=== PATIENT | male | born 1935 | race Caucasian/White ===

== ENCOUNTER 2020-08-27 10:20 | Outpatient (CLI) | payer MEDICARE | END 2020-08-27 10:21 | disposition home or self-care (01) | LOC: DI 10:20 | PROVIDERS: ATTEND Internal Medicine | DX: I48.21 Permanent atrial fibrillation (principal); I27.20 Pulmonary hypertension, unspecified; I08.0 Rheumatic disorders of both mitral and aortic valves | CPT/HCPCS: 93306 ==

== ENCOUNTER 2020-11-20 13:43 | Outpatient (CLI) | payer MEDICARE ==
[2020-11-20 14:33] VITALS: BP 132/90
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
== END 2020-11-20 13:44 | disposition home or self-care (01) ==
LOC: SC 13:43
PROVIDERS: ATTEND Nurse Practitioner Family
DX: G47.33 Obstructive sleep apnea (adult) (pediatric) (principal); E66.9 Obesity, unspecified; Z68.32 Body mass index [BMI] 32.0-32.9, adult
CPT/HCPCS: 99202; G0463; 99212

== ENCOUNTER 2020-11-23 13:05 | Outpatient (CLI) | payer MEDICARE ==
[2020-11-23] MEDS ORDERED: ALBUTEROL 1 PUFF INH STA (14:41)
== END 2020-11-23 13:06 | disposition home or self-care (01) ==
LOC: RT 13:05
PROVIDERS: ATTEND Internal Medicine
DX: I27.20 Pulmonary hypertension, unspecified (principal)
CPT/HCPCS: 94060; 94729

== ENCOUNTER 2021-01-31 13:36 | Outpatient (CLI) | payer MEDICARE | END 2021-01-31 13:37 | disposition home or self-care (01) | LOC: LAB 13:36 | PROVIDERS: ATTEND Internal Medicine | DX: I48.91 Unspecified atrial fibrillation (principal); Z79.01 Long term (current) use of anticoagulants | CPT/HCPCS: 36416; 85610 ==

== ENCOUNTER 2021-02-07 09:47 | Outpatient (CLI) | payer MEDICARE | END 2021-02-07 09:48 | disposition home or self-care (01) | LOC: LAB 09:47 | PROVIDERS: ATTEND Internal Medicine | DX: I48.91 Unspecified atrial fibrillation (principal); Z79.01 Long term (current) use of anticoagulants | CPT/HCPCS: 36416; 85610 ==

== ENCOUNTER 2021-02-14 09:48 | Outpatient (CLI) | payer MEDICARE | END 2021-02-14 09:49 | disposition home or self-care (01) | LOC: LAB 09:48 | PROVIDERS: ATTEND Internal Medicine | DX: I48.91 Unspecified atrial fibrillation (principal); Z79.01 Long term (current) use of anticoagulants | CPT/HCPCS: 36416; 85610 ==

== ENCOUNTER 2021-02-21 09:39 | Outpatient (CLI) | payer MEDICARE | END 2021-02-21 09:40 | disposition home or self-care (01) | LOC: LAB 09:39 | PROVIDERS: ATTEND Internal Medicine | DX: I48.91 Unspecified atrial fibrillation (principal); Z79.01 Long term (current) use of anticoagulants | CPT/HCPCS: 36416; 85610 ==

== ENCOUNTER 2021-02-28 09:34 | Outpatient (CLI) | payer MEDICARE | END 2021-02-28 09:35 | disposition home or self-care (01) | LOC: LAB 09:34 | PROVIDERS: ATTEND Internal Medicine | DX: I48.91 Unspecified atrial fibrillation (principal); Z79.01 Long term (current) use of anticoagulants | CPT/HCPCS: 36416; 85610 ==

== ENCOUNTER 2021-03-07 09:52 | Outpatient (CLI) | payer MEDICARE | END 2021-03-07 09:53 | disposition home or self-care (01) | LOC: LAB 09:52 | PROVIDERS: ATTEND Internal Medicine | DX: I48.91 Unspecified atrial fibrillation (principal); Z79.01 Long term (current) use of anticoagulants | CPT/HCPCS: 36416; 85610 ==

== ENCOUNTER 2021-03-21 09:22 | Outpatient (CLI) | payer MEDICARE | END 2021-03-21 09:23 | disposition home or self-care (01) | LOC: LAB 09:22 | PROVIDERS: ATTEND Internal Medicine | DX: I48.91 Unspecified atrial fibrillation (principal); Z79.01 Long term (current) use of anticoagulants | CPT/HCPCS: 85610 ==

== ENCOUNTER 2021-03-28 09:49 | Outpatient (CLI) | payer MEDICARE | END 2021-03-28 09:50 | disposition home or self-care (01) | LOC: LAB 09:49 | PROVIDERS: ATTEND Internal Medicine | DX: I48.91 Unspecified atrial fibrillation (principal); Z79.01 Long term (current) use of anticoagulants | CPT/HCPCS: 36416; 85610 ==

== ENCOUNTER 2021-04-11 09:47 | Outpatient (CLI) | payer MEDICARE | END 2021-04-11 09:48 | disposition home or self-care (01) | LOC: LAB 09:47 | PROVIDERS: ATTEND Internal Medicine | DX: I48.91 Unspecified atrial fibrillation (principal); Z79.01 Long term (current) use of anticoagulants | CPT/HCPCS: 36416; 85610 ==

== ENCOUNTER 2021-04-25 09:31 | Outpatient (CLI) | payer MEDICARE | END 2021-04-25 09:32 | disposition home or self-care (01) | LOC: LAB 09:31 | PROVIDERS: ATTEND Internal Medicine | DX: I48.91 Unspecified atrial fibrillation (principal); Z79.01 Long term (current) use of anticoagulants | CPT/HCPCS: 36416; 85610 ==

== ENCOUNTER 2021-05-16 09:33 | Outpatient (CLI) | payer MEDICARE | END 2021-05-16 09:34 | disposition home or self-care (01) | LOC: LAB 09:33 | PROVIDERS: ATTEND Internal Medicine | DX: I48.91 Unspecified atrial fibrillation (principal); Z79.01 Long term (current) use of anticoagulants | CPT/HCPCS: 36416; 85610 ==

== ENCOUNTER 2021-05-23 09:26 | Outpatient (CLI) | payer MEDICARE | END 2021-05-23 09:27 | disposition home or self-care (01) | LOC: LAB 09:26 | PROVIDERS: ATTEND Internal Medicine | DX: I48.91 Unspecified atrial fibrillation (principal); Z79.01 Long term (current) use of anticoagulants | CPT/HCPCS: 36416; 85610 ==

== ENCOUNTER 2021-05-30 09:30 | Outpatient (CLI) | payer MEDICARE | END 2021-05-30 09:31 | disposition home or self-care (01) | LOC: LAB 09:30 | PROVIDERS: ATTEND Internal Medicine | DX: I48.91 Unspecified atrial fibrillation (principal); Z79.01 Long term (current) use of anticoagulants | CPT/HCPCS: 36416; 85610 ==

== ENCOUNTER 2021-06-20 09:44 | Outpatient (CLI) | payer MEDICARE | END 2021-06-20 09:45 | disposition home or self-care (01) | LOC: LAB 09:44 | PROVIDERS: ATTEND Internal Medicine | DX: I48.91 Unspecified atrial fibrillation (principal); Z79.01 Long term (current) use of anticoagulants | CPT/HCPCS: 36416; 85610 ==

== ENCOUNTER 2021-07-18 09:32 | Outpatient (CLI) | payer MEDICARE | END 2021-07-18 09:33 | disposition home or self-care (01) | LOC: LAB 09:32 | PROVIDERS: ATTEND Internal Medicine | DX: I48.91 Unspecified atrial fibrillation (principal); Z79.01 Long term (current) use of anticoagulants | CPT/HCPCS: 36416; 85610 ==

== ENCOUNTER 2021-08-22 09:39 | Outpatient (CLI) | payer MEDICARE | END 2021-08-22 09:40 | disposition home or self-care (01) | LOC: LAB 09:39 | PROVIDERS: ATTEND Internal Medicine | DX: I48.91 Unspecified atrial fibrillation (principal); Z79.01 Long term (current) use of anticoagulants | CPT/HCPCS: 36416; 85610 ==

== ENCOUNTER 2021-09-05 09:23 | Outpatient (CLI) | payer MEDICARE | END 2021-09-05 09:24 | disposition home or self-care (01) | LOC: LAB 09:23 | PROVIDERS: ATTEND Internal Medicine | DX: I48.91 Unspecified atrial fibrillation (principal); Z79.01 Long term (current) use of anticoagulants | CPT/HCPCS: 36416; 85610 ==

== ENCOUNTER 2021-09-19 09:23 | Outpatient (CLI) | payer MEDICARE | END 2021-09-19 09:24 | disposition home or self-care (01) | LOC: LAB 09:23 | PROVIDERS: ATTEND Internal Medicine | DX: I48.91 Unspecified atrial fibrillation (principal); Z79.01 Long term (current) use of anticoagulants | CPT/HCPCS: 36416; 85610 ==

== ENCOUNTER 2021-10-17 09:29 | Outpatient (CLI) | payer MEDICARE | END 2021-10-17 09:30 | disposition home or self-care (01) | LOC: LAB 09:29 | PROVIDERS: ATTEND Internal Medicine | DX: I48.91 Unspecified atrial fibrillation (principal); Z79.01 Long term (current) use of anticoagulants | CPT/HCPCS: 36416; 85610 ==

== ENCOUNTER 2021-11-21 09:23 | Outpatient (CLI) | payer MEDICARE | END 2021-11-21 09:24 | disposition home or self-care (01) | LOC: LAB 09:23 | PROVIDERS: ATTEND Internal Medicine | DX: I48.91 Unspecified atrial fibrillation (principal); Z79.01 Long term (current) use of anticoagulants | CPT/HCPCS: 36416; 85610 ==

== ENCOUNTER 2021-12-19 09:30 | Outpatient (CLI) | payer MEDICARE | END 2021-12-19 09:31 | disposition home or self-care (01) | LOC: LAB 09:30 | PROVIDERS: ATTEND Internal Medicine | DX: I48.91 Unspecified atrial fibrillation (principal); Z79.01 Long term (current) use of anticoagulants | CPT/HCPCS: 36416; 85610 ==

== ENCOUNTER 2022-01-16 08:00 | Outpatient (CLI) | payer MEDICARE | END 2022-01-16 08:01 | disposition home or self-care (01) | LOC: LAB 08:00 | PROVIDERS: ATTEND Internal Medicine | DX: I48.91 Unspecified atrial fibrillation (principal); Z79.01 Long term (current) use of anticoagulants | CPT/HCPCS: 36416; 85610 ==

== ENCOUNTER 2022-01-23 09:41 | Outpatient (CLI) | payer MEDICARE | END 2022-01-23 09:42 | disposition home or self-care (01) | LOC: LAB 09:41 | PROVIDERS: ATTEND Internal Medicine | DX: I48.91 Unspecified atrial fibrillation (principal); Z79.01 Long term (current) use of anticoagulants | CPT/HCPCS: 36416; 85610 ==

== ENCOUNTER 2022-01-30 09:25 | Outpatient (CLI) | payer MEDICARE | END 2022-01-30 09:26 | disposition home or self-care (01) | LOC: LAB 09:25 | PROVIDERS: ATTEND Internal Medicine | DX: I48.91 Unspecified atrial fibrillation (principal); Z79.01 Long term (current) use of anticoagulants | CPT/HCPCS: 36416; 85610 ==

== ENCOUNTER 2022-02-06 09:25 | Outpatient (CLI) | payer MEDICARE | END 2022-02-06 09:26 | disposition home or self-care (01) | LOC: LAB 09:25 | PROVIDERS: ATTEND Internal Medicine | DX: I48.91 Unspecified atrial fibrillation (principal); Z79.01 Long term (current) use of anticoagulants | CPT/HCPCS: 36416; 85610 ==

== ENCOUNTER 2022-02-13 09:34 | Outpatient (CLI) | payer MEDICARE | END 2022-02-13 09:35 | disposition home or self-care (01) | LOC: LAB 09:34 | PROVIDERS: ATTEND Internal Medicine | DX: I48.91 Unspecified atrial fibrillation (principal); Z79.01 Long term (current) use of anticoagulants | CPT/HCPCS: 36416; 85610 ==

== ENCOUNTER 2022-02-27 09:23 | Outpatient (CLI) | payer MEDICARE | END 2022-02-27 09:24 | disposition home or self-care (01) | LOC: LAB 09:23 | PROVIDERS: ATTEND Internal Medicine | DX: I48.91 Unspecified atrial fibrillation (principal); Z79.01 Long term (current) use of anticoagulants | CPT/HCPCS: 36416; 85610 ==

== ENCOUNTER 2022-03-13 08:00 | Outpatient (CLI) | payer MEDICARE | END 2022-03-13 23:59 | disposition home or self-care (01) | LOC: LAB 08:00 | PROVIDERS: ATTEND Internal Medicine | DX: I48.91 Unspecified atrial fibrillation (principal); Z79.01 Long term (current) use of anticoagulants | CPT/HCPCS: 85610 ==

== ENCOUNTER 2022-04-03 09:28 | Outpatient (CLI) | payer MEDICARE | END 2022-04-03 09:29 | disposition home or self-care (01) | LOC: LAB 09:28 | PROVIDERS: ATTEND Internal Medicine | DX: I48.91 Unspecified atrial fibrillation (principal); Z79.01 Long term (current) use of anticoagulants | CPT/HCPCS: 36416; 85610 ==

== ENCOUNTER 2022-04-10 08:00 | Outpatient (CLI) | payer MEDICARE ==
[2022-04-10 16:32] LABS: CALCIUM 9.3 mg/dL (8.5-10.3); CREATININE 1.5 mg/dL (0.6-1.2); POTASSIUM 4.1 mmol/L (3.5-5.0)
[2022-04-10 20:28] LABS: ESTIMATED AVERAGE GLUCOSE 160 mg/dL (70-100); HEMOGLOBIN A1c% 7.2 % (4.27-6.07)
== END 2022-04-10 23:59 | disposition home or self-care (01) ==
LOC: LAB.R 08:00
PROVIDERS: ATTEND Internal Medicine
DX: I48.91 Unspecified atrial fibrillation (principal); E11.9 Type 2 diabetes mellitus without complications
CPT/HCPCS: 80048; 82607; 83036

== ENCOUNTER 2022-05-01 09:15 | Outpatient (CLI) | payer MEDICARE | END 2022-05-01 09:16 | disposition home or self-care (01) | LOC: LAB 09:15 | PROVIDERS: ATTEND Internal Medicine | DX: I48.91 Unspecified atrial fibrillation (principal); Z79.01 Long term (current) use of anticoagulants | CPT/HCPCS: 36416; 85610 ==

== ENCOUNTER 2022-06-12 09:26 | Outpatient (CLI) | payer MEDICARE | END 2022-06-12 09:27 | disposition home or self-care (01) | LOC: LAB 09:26 | PROVIDERS: ATTEND Internal Medicine | DX: I48.91 Unspecified atrial fibrillation (principal); Z79.01 Long term (current) use of anticoagulants | CPT/HCPCS: 36416; 85610 ==

== ENCOUNTER 2022-07-24 09:20 | Outpatient (CLI) | payer MEDICARE | END 2022-07-24 09:21 | disposition home or self-care (01) | LOC: LAB 09:20 | PROVIDERS: ATTEND Internal Medicine | DX: I48.91 Unspecified atrial fibrillation (principal); Z79.01 Long term (current) use of anticoagulants | CPT/HCPCS: 36416; 85610 ==

== ENCOUNTER 2022-08-07 09:21 | Outpatient (CLI) | payer MEDICARE | END 2022-08-07 09:22 | disposition home or self-care (01) | LOC: LAB 09:21 | PROVIDERS: ATTEND Internal Medicine | DX: I48.91 Unspecified atrial fibrillation (principal); Z79.01 Long term (current) use of anticoagulants | CPT/HCPCS: 36416; 85610 ==

== ENCOUNTER 2022-08-26 10:02 | Outpatient (CLI) | payer MEDICARE | END 2022-08-26 10:03 | disposition home or self-care (01) | LOC: LAB 10:02 | PROVIDERS: ATTEND Internal Medicine | DX: I48.91 Unspecified atrial fibrillation (principal); Z79.01 Long term (current) use of anticoagulants | CPT/HCPCS: 36416; 85610 ==

== ENCOUNTER 2022-09-04 09:44 | Outpatient (CLI) | payer MEDICARE | END 2022-09-04 09:45 | disposition home or self-care (01) | LOC: LAB 09:44 | PROVIDERS: ATTEND Internal Medicine | DX: I48.91 Unspecified atrial fibrillation (principal); Z79.01 Long term (current) use of anticoagulants | CPT/HCPCS: 36416; 85610 ==

== ENCOUNTER 2022-09-11 09:39 | Outpatient (CLI) | payer MEDICARE | END 2022-09-11 09:40 | disposition home or self-care (01) | LOC: LAB 09:39 | PROVIDERS: ATTEND Internal Medicine | DX: I48.91 Unspecified atrial fibrillation (principal); Z79.01 Long term (current) use of anticoagulants | CPT/HCPCS: 36416; 85610 ==

== ENCOUNTER 2022-10-02 09:39 | Outpatient (CLI) | payer MEDICARE | END 2022-10-02 09:40 | disposition home or self-care (01) | LOC: LAB 09:39 | PROVIDERS: ATTEND Internal Medicine | DX: I48.91 Unspecified atrial fibrillation (principal); Z79.01 Long term (current) use of anticoagulants | CPT/HCPCS: 36416; 85610 ==

== ENCOUNTER 2022-10-04 21:44 | Outpatient (CLI) | payer MEDICARE | END 2022-10-04 21:45 | disposition EMS.NT | LOC: EMS 21:44 | DX: Z03.89 Encounter for observation for other suspected diseases and conditions ruled out (principal) ==

== ENCOUNTER 2022-10-23 09:25 | Outpatient (CLI) | payer MEDICARE | END 2022-10-23 09:26 | disposition home or self-care (01) | LOC: LAB 09:25 | PROVIDERS: ATTEND Internal Medicine | DX: I48.91 Unspecified atrial fibrillation (principal); Z79.01 Long term (current) use of anticoagulants | CPT/HCPCS: 85610 ==

== ENCOUNTER 2022-11-16 09:19 | Outpatient (CLI) | payer MEDICARE | END 2022-11-16 09:20 | disposition home or self-care (01) | LOC: LAB 09:19 | PROVIDERS: ATTEND Internal Medicine | DX: I48.91 Unspecified atrial fibrillation (principal); Z79.01 Long term (current) use of anticoagulants | CPT/HCPCS: 36416; 85610 ==

== ENCOUNTER 2022-11-27 09:14 | Outpatient (CLI) | payer MEDICARE | END 2022-11-27 09:15 | disposition home or self-care (01) | LOC: LAB 09:14 | PROVIDERS: ATTEND Internal Medicine | DX: I48.91 Unspecified atrial fibrillation (principal); Z79.01 Long term (current) use of anticoagulants | CPT/HCPCS: 36416; 85610 ==

== ENCOUNTER 2022-12-24 14:24 | Outpatient (CLI) | payer MEDICARE | END 2022-12-24 23:59 | disposition EMS.NT | LOC: EMS 14:24 | DX: R53.1 Weakness (principal) ==

== ENCOUNTER 2023-01-15 09:26 | Outpatient (CLI) | payer MEDICARE | END 2023-01-15 09:27 | disposition home or self-care (01) | LOC: LAB 09:26 | PROVIDERS: ATTEND Internal Medicine | DX: I48.91 Unspecified atrial fibrillation (principal); Z79.01 Long term (current) use of anticoagulants | CPT/HCPCS: 36416; 85610 ==

== ENCOUNTER 2023-01-22 09:39 | Outpatient (CLI) | payer MEDICARE | END 2023-01-22 09:40 | disposition home or self-care (01) | LOC: LAB 09:39 | PROVIDERS: ATTEND Internal Medicine | DX: I48.91 Unspecified atrial fibrillation (principal); Z79.01 Long term (current) use of anticoagulants | CPT/HCPCS: 36416; 85610 ==

== ENCOUNTER 2023-01-25 10:06 | Outpatient (CLI) | payer MEDICARE | END 2023-01-25 10:07 | disposition home or self-care (01) | LOC: LAB 10:06 | PROVIDERS: ATTEND Internal Medicine | DX: I48.91 Unspecified atrial fibrillation (principal); Z79.01 Long term (current) use of anticoagulants | CPT/HCPCS: 36416; 85610 ==

== ENCOUNTER 2023-02-01 09:29 | Outpatient (CLI) | payer MEDICARE | END 2023-02-01 09:30 | disposition home or self-care (01) | LOC: LAB 09:29 | PROVIDERS: ATTEND Internal Medicine | DX: I48.91 Unspecified atrial fibrillation (principal); Z79.01 Long term (current) use of anticoagulants | CPT/HCPCS: 36416; 85610 ==

== ENCOUNTER 2023-02-02 10:26 | Outpatient (CLI) | payer MEDICARE ==
--- NOTE | 2023-02-02 11:08 | CT Report ---
PROCEDURE: HEAD WO INDICATIONS: ALTERED MENATL STATUS TECHNIQUE: Noncontrast 4.5 mm thick angled axial sections acquired from the foramen magnum to the vertex. For r adiation dose reduction, the following was used: automated exposure control, adjustment of mA and/or kV according to patient size. COMPARISON: None. FINDINGS: Image quality: Excellent. CSF spaces: Basal cisterns are patent. No extra-axial fluid collections. Ventricles are normal in size and shape. Brain: No midline shift. No intracranial masses or hemorrhage. Bautista-white matter interface is norm al. Vascular calcifications. Periventricular white matter disease is commonly seen with chronic micr oangiopathy. Volume loss is present. These findings are within normal limits for age. Remote infarct in the right basal ganglia. Skull and face: Calvarium and visualized facial bones are intact, without suspicious lesions. Sinuses: Visualized sinuses and mastoids are clear. IMPRESSION: No acute intracranial pathology Reviewed by: Juan Carlos Dexter on 02/02/2023 11:06 AM PDT Approved by: Juan Carlos Dexter on 02/02/2023 11:06 AM PDT Station ID: [id number]
== END 2023-02-02 10:27 | disposition home or self-care (01) ==
LOC: DI 10:26
PROVIDERS: ATTEND Internal Medicine
DX: R41.82 Altered mental status, unspecified (principal)

== ENCOUNTER 2023-02-08 09:27 | Outpatient (CLI) | payer MEDICARE | END 2023-02-08 09:28 | disposition home or self-care (01) | LOC: LAB 09:27 | PROVIDERS: ATTEND Internal Medicine | DX: I48.91 Unspecified atrial fibrillation (principal); Z79.01 Long term (current) use of anticoagulants | CPT/HCPCS: 36416; 85610 ==

== ENCOUNTER 2023-02-18 09:54 | Outpatient (CLI) | payer MEDICARE | END 2023-02-18 09:55 | disposition home or self-care (01) | LOC: LAB 09:54 | PROVIDERS: ATTEND Internal Medicine | DX: I48.91 Unspecified atrial fibrillation (principal); Z79.01 Long term (current) use of anticoagulants | CPT/HCPCS: 36416; 85610 ==

== ENCOUNTER 2023-03-04 14:23 | Outpatient (CLI) | payer MEDICARE | END 2023-03-04 14:24 | disposition home or self-care (01) | LOC: LAB 14:23 | PROVIDERS: ATTEND Internal Medicine | DX: I48.91 Unspecified atrial fibrillation (principal); Z79.01 Long term (current) use of anticoagulants | CPT/HCPCS: 36416; 85610 ==

== ENCOUNTER 2023-03-11 15:22 | Outpatient (CLI) | payer MEDICARE | END 2023-03-11 15:23 | disposition home or self-care (01) | LOC: DI 15:22 | PROVIDERS: ATTEND Internal Medicine | DX: I48.91 Unspecified atrial fibrillation (principal); Z79.01 Long term (current) use of anticoagulants | CPT/HCPCS: 36416; 85610 ==

== ENCOUNTER 2023-03-25 15:10 | Outpatient (CLI) | payer MEDICARE | END 2023-03-25 15:11 | disposition home or self-care (01) | LOC: LAB 15:10 | PROVIDERS: ATTEND Internal Medicine | DX: I48.91 Unspecified atrial fibrillation (principal); Z79.01 Long term (current) use of anticoagulants | CPT/HCPCS: 36416; 85610 ==

== ENCOUNTER 2023-04-05 11:26 | Outpatient (CLI) | payer MEDICARE | END 2023-04-05 11:27 | disposition home or self-care (01) | LOC: LAB 11:26 | PROVIDERS: ATTEND Internal Medicine | DX: I48.91 Unspecified atrial fibrillation (principal); Z79.01 Long term (current) use of anticoagulants | CPT/HCPCS: 36416; 85610 ==

== ENCOUNTER 2023-04-13 13:01 | Outpatient (CLI) | payer MEDICARE | END 2023-04-13 13:02 | disposition home or self-care (01) | LOC: LAB 13:01 | PROVIDERS: ATTEND Internal Medicine | DX: I48.91 Unspecified atrial fibrillation (principal); Z79.01 Long term (current) use of anticoagulants | CPT/HCPCS: 36416; 85610 ==

== ENCOUNTER 2023-04-19 11:09 | Outpatient (CLI) | payer MEDICARE | END 2023-04-19 11:10 | disposition home or self-care (01) | LOC: LAB 11:09 | PROVIDERS: ATTEND Internal Medicine | DX: I48.91 Unspecified atrial fibrillation (principal); Z79.01 Long term (current) use of anticoagulants | CPT/HCPCS: 36416; 85610 ==

== ENCOUNTER 2023-05-03 13:36 | Outpatient (CLI) | payer MEDICARE | END 2023-05-03 13:37 | disposition home or self-care (01) | LOC: LAB 13:36 | PROVIDERS: ATTEND Internal Medicine | DX: I48.91 Unspecified atrial fibrillation (principal); Z79.01 Long term (current) use of anticoagulants | CPT/HCPCS: 36416; 85610 ==

== ENCOUNTER 2023-06-02 13:32 | Outpatient (CLI) | payer MEDICARE | END 2023-06-02 13:33 | disposition home or self-care (01) | LOC: LAB 13:32 | PROVIDERS: ATTEND Internal Medicine | DX: I48.91 Unspecified atrial fibrillation (principal); Z79.01 Long term (current) use of anticoagulants | CPT/HCPCS: 36416; 85610 ==

== ENCOUNTER 2023-06-11 12:46 | Outpatient (CLI) | payer MEDICARE | END 2023-06-11 12:47 | disposition home or self-care (01) | LOC: LAB 12:46 | PROVIDERS: ATTEND Internal Medicine | DX: I48.91 Unspecified atrial fibrillation (principal); Z79.01 Long term (current) use of anticoagulants | CPT/HCPCS: 36416; 85610 ==

== ENCOUNTER 2023-07-05 12:24 | Outpatient (CLI) | payer MEDICARE | END 2023-07-05 12:25 | disposition home or self-care (01) | LOC: LAB 12:24 | PROVIDERS: ATTEND Internal Medicine | DX: I48.91 Unspecified atrial fibrillation (principal); Z79.01 Long term (current) use of anticoagulants | CPT/HCPCS: 36416; 85610 ==

== ENCOUNTER 2023-07-20 13:55 | Outpatient (CLI) | payer MEDICARE | END 2023-07-20 13:56 | disposition home or self-care (01) | LOC: LAB 13:55 | PROVIDERS: ATTEND Internal Medicine | DX: I48.91 Unspecified atrial fibrillation (principal); Z79.01 Long term (current) use of anticoagulants | CPT/HCPCS: 36416; 85610 ==

== ENCOUNTER 2023-08-17 12:43 | Outpatient (CLI) | payer MEDICARE | END 2023-08-17 12:44 | disposition home or self-care (01) | LOC: LAB 12:43 | PROVIDERS: ATTEND Internal Medicine | DX: I48.91 Unspecified atrial fibrillation (principal); Z79.01 Long term (current) use of anticoagulants | CPT/HCPCS: 36416; 85610 ==

== ENCOUNTER 2023-09-22 12:54 | Outpatient (CLI) | payer MEDICARE | END 2023-09-22 12:55 | disposition home or self-care (01) | LOC: LAB 12:54 | PROVIDERS: ATTEND Internal Medicine | DX: I48.91 Unspecified atrial fibrillation (principal); Z79.01 Long term (current) use of anticoagulants | CPT/HCPCS: 36416; 85610 ==

== ENCOUNTER 2023-10-26 13:34 | Outpatient (CLI) | payer MEDICARE | END 2023-10-26 13:35 | disposition home or self-care (01) | LOC: LAB 13:34 | PROVIDERS: ATTEND Internal Medicine | DX: I48.91 Unspecified atrial fibrillation (principal); Z79.01 Long term (current) use of anticoagulants | CPT/HCPCS: 36416; 85610 ==

== ENCOUNTER 2023-11-26 13:51 | Outpatient (CLI) | payer MEDICARE | END 2023-11-26 13:52 | disposition home or self-care (01) | LOC: LAB 13:51 | PROVIDERS: ATTEND Internal Medicine | DX: I48.91 Unspecified atrial fibrillation (principal); Z79.01 Long term (current) use of anticoagulants | CPT/HCPCS: 36416; 85610 ==

== ENCOUNTER 2023-12-20 13:21 | Outpatient (CLI) | payer MEDICARE | END 2023-12-20 13:22 | disposition home or self-care (01) | LOC: LAB 13:21 | PROVIDERS: ATTEND Internal Medicine | DX: I48.91 Unspecified atrial fibrillation (principal); Z79.01 Long term (current) use of anticoagulants | CPT/HCPCS: 36416; 85610 ==

== ENCOUNTER 2024-01-19 13:53 | Outpatient (CLI) | payer MEDICARE | END 2024-01-19 13:54 | disposition home or self-care (01) | LOC: LAB 13:53 | PROVIDERS: ATTEND Internal Medicine | DX: I48.91 Unspecified atrial fibrillation (principal); Z79.01 Long term (current) use of anticoagulants | CPT/HCPCS: 36416; 85610 ==

== ENCOUNTER 2024-02-18 13:33 | Outpatient (CLI) | payer MEDICARE | END 2024-02-18 13:34 | disposition home or self-care (01) | LOC: LAB 13:33 | PROVIDERS: ATTEND Internal Medicine | DX: I48.91 Unspecified atrial fibrillation (principal); Z79.01 Long term (current) use of anticoagulants | CPT/HCPCS: 36416; 85610 ==

== ENCOUNTER 2024-03-17 12:23 | Outpatient (CLI) | payer MEDICARE | END 2024-03-17 12:24 | disposition home or self-care (01) | LOC: LAB 12:23 | PROVIDERS: ATTEND Internal Medicine | DX: I48.91 Unspecified atrial fibrillation (principal); Z79.01 Long term (current) use of anticoagulants | CPT/HCPCS: 36416; 85610 ==

== ENCOUNTER 2024-04-25 13:11 | Outpatient (CLI) | payer MEDICARE | END 2024-04-25 13:12 | disposition home or self-care (01) | LOC: LAB 13:11 | PROVIDERS: ATTEND Internal Medicine | DX: I48.91 Unspecified atrial fibrillation (principal); Z79.01 Long term (current) use of anticoagulants | CPT/HCPCS: 36416; 85610 ==

== ENCOUNTER 2024-04-28 14:17 | Outpatient (CLI) | payer MEDICARE | END 2024-04-28 14:18 | disposition home or self-care (01) | LOC: LAB 14:17 | PROVIDERS: ATTEND Internal Medicine | DX: I48.91 Unspecified atrial fibrillation (principal); Z79.01 Long term (current) use of anticoagulants | CPT/HCPCS: 36416; 85610 ==

== ENCOUNTER 2024-05-01 13:03 | Outpatient (CLI) | payer MEDICARE | END 2024-05-01 13:04 | disposition home or self-care (01) | LOC: LAB 13:03 | PROVIDERS: ATTEND Internal Medicine | DX: I48.91 Unspecified atrial fibrillation (principal); Z79.01 Long term (current) use of anticoagulants | CPT/HCPCS: 36416; 85610 ==

== ENCOUNTER 2024-05-04 13:07 | Outpatient (CLI) | payer MEDICARE | END 2024-05-04 13:08 | disposition home or self-care (01) | LOC: LAB 13:07 | PROVIDERS: ATTEND Internal Medicine | DX: I48.91 Unspecified atrial fibrillation (principal); Z79.01 Long term (current) use of anticoagulants | CPT/HCPCS: 36416; 85610 ==

== ENCOUNTER 2024-05-09 14:18 | Outpatient (CLI) | payer MEDICARE | END 2024-05-09 14:19 | disposition home or self-care (01) | LOC: LAB 14:18 | PROVIDERS: ATTEND Internal Medicine | DX: I48.91 Unspecified atrial fibrillation (principal); Z79.01 Long term (current) use of anticoagulants | CPT/HCPCS: 36416; 85610 ==

== ENCOUNTER 2024-05-16 12:08 | Outpatient (CLI) | payer MEDICARE | END 2024-05-16 12:09 | disposition home or self-care (01) | LOC: LAB 12:08 | PROVIDERS: ATTEND Internal Medicine | DX: I48.91 Unspecified atrial fibrillation (principal); Z79.01 Long term (current) use of anticoagulants | CPT/HCPCS: 36416; 85610 ==

== ENCOUNTER 2024-05-29 14:04 | Outpatient (CLI) | payer MEDICARE | END 2024-05-29 14:05 | disposition home or self-care (01) | LOC: LAB 14:04 | PROVIDERS: ATTEND Internal Medicine | DX: I48.91 Unspecified atrial fibrillation (principal); Z79.01 Long term (current) use of anticoagulants | CPT/HCPCS: 36416; 85610 ==

== ENCOUNTER 2024-11-25 18:17 | Observation (INO) ==
--- NOTE | 2024-11-25 18:52 | ED Physician Documentation ---
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 Patient is brought in via EMS for concerns of recent altered mental status, hypotension, weakness. Most of the history is gathered from , she reports that yesterday patient had a bilateral lower extremity wound debridement they told her to make sure that they are medicating him every 4 hours [id number] with oxycodone despite what ever his pain level was. Today she reports that patient has been having episodes of hallucinations very weak very dizzy to the point where he was unable to move or walk and had a hard time communicating to the . Patient says that he is feeling very weak right now as well as dizzy laying at rest. He was told to hold his Pradaxa 2 days leading up to surgery but that he could start taking it again today last dose of Pradaxa was around 2:00 this afternoon and has not had any additional Pradaxa since then. Meds/Allgy Home Medications Ambulatory Orders Medication Instructions Recorded Confirmed dabigatran etexilate 75 mg capsule 75 mg PO BID 08/20/24 11/24/24 (Pradaxa) dorzolamide 22.3 mg-timolol 6.8 1 drp ophthalmic (eye) BID 08/20/24 11/24/24 mg/mL eye drops furosemide 20 mg tablet 20 mg PO DAILY 08/20/24 11/24/24 latanoprost 0.005 % eye drops 1 drp ophthalmic (eye) DAILY 08/20/24 11/24/24 metoprolol tartrate 25 mg tablet 25 mg PO BID 08/20/24 11/24/24 calcium carbonate (Tums) 200 mg PO BID 09/07/24 11/24/24 vit C 250 mg-vit E 90 mg-zinc 40 1 tab PO BID 09/07/24 11/24/24 mg-copper 1 di-djllbr-kzotho capsule (PreserVision AREDS-2) oxycodone 5 mg tablet 5 mg PO Q4H PRN Pain #30 tabs 11/24/24 Allergies Allergies Allergy/AdvReac Type Severity Reaction Status Date / Time diclofenac AdvReac Severe Hives Verified 11/25/24 18:29 PFSH Active Problems All Active Problems (Updated 11/25/24 @ 21:30 by HELGA Guardado) Post-operative complication (Acute) Altered mental status (Acute) Accidental overdose (Acute) Skin tear of right lower leg without complication (Acute) Skin tear of left lower leg without complication (Acute) SAVANAH (acute kidney injury) (Acute) Dehydration (Acute) Skin tear (Acute) Arterial insufficiency of lower extremity (Acute) Localized edema (Acute) Non-pressure chronic ulcer of unspecified part of left lower leg with fat layer exposed (Acute) Ulcer of left lower leg (Acute) Medical History Medical History (Updated 11/25/24 @ 21:30 by HELGA Guardado) Chronic kidney disease (CKD) Hx of prostatic malignancy Diabetes mellitus A-fib HTN (hypertension) Surgical History Surgical History (Updated 11/17/24 @ 11:21 by Jyoti Duque, RN) Hx of prostatectomy Social History Social History (Updated 11/17/24 @ 11:22 by Jyoti Duque, RN) Smoking Status: Never smoker Second hand tobacco smoke exposure: No Do you dip or chew tobacco?: No Do you vape?: No Patient requests smoking cessation consult: No Initiate information on smoking cessation: No Living arrangement: At home Marital Status: Relationship: Home Mobility Equipment: Walker Do you feel safe in your home environment?: Yes Suffered physical, verbal, emotional, or financial abuse?: No History of Abuse: No ETOH Use: Liquor Frequency: Weekly Number of Amount/day: 1 ETOH Use Details: 1 drink 3-4 times per week Substance Use: denies use and cannabis (any form) POLST Patient has POLST: No Exam Constitutional abnormal general appearance (chronically ill), (appears older than stated age) and (frail appearing), no apparent distress, average body habitus, limitations noted (altered mental status) and level of alertness abnormal (lethargic) HENMT normocephalic and head/scalp atraumatic Eyes PERRL and no nystagmus Neck/C-Spine visual inspection normal Chest inspection of chest normal and palpation of chest normal Respiratory breath sounds equal bilaterally Cardiovascular normal heart rate noted Gastrointestinal abdomen normal to inspection Extremities BLE dressing, LLE weeping blood, RLE dressing dry and intact Neurology speech normal Psychiatry mental status abnormal (lethargic), oriented x3 and cooperative Skin LLE: Large roughly [id number] wound from surgical Debridement to the medial aspect of his left calf. No purulent drainage no erythema no signs or symptoms of infection. Results Vitals Vitals: Vital Signs - 24 hr 11/25/24 18:26 11/25/24 19:00 11/25/24 21:00 Temperature 36.6 C Temperature Source Temporal Artery Scan Pulse Rate 86 92 88 Respiratory Rate 19 20 16 Blood Pressure 111/67 123/82 105/70 O2 Saturation 98 98 97 O2 Source Room air Room air Room air Pain Intensity 8 1 Oxygen O2 Source Room air Labs Labs: Laboratory Tests 11/25/24 11/25/24 18:44 19:48 WBC 11.4 H RBC 2.99 L Hgb 9.8 L Hct 31.5 L MCV 105.4 H MCH 32.8 H MCHC 31.1 L RDW 15.5 H Plt Count 211 MPV 9.4 Neut # (Auto) 9.5 H Lymph # (Auto) 0.9 L [place] # (Auto) 0.9 Eos # (Auto) 0.0 Baso # (Auto) 0.0 Absolute Nucleated RBC 0.00 Nucleated RBC % 0.0 PT 14.4 H INR 1.3 H Sodium 134 L Potassium 4.1 Chloride 101 Carbon Dioxide 25 Anion Gap 8.0 BUN 29 H Creatinine 2.2 H Estimated GFR (MDRD) 28 L Glucose 166 H Calcium 8.9 Acetaminophen 0.6 Blood Type O POSITIVE Blood Type Recheck O POSITIVE Antibody Screen NEGATIVE PD Medical Decision Making ED course ED course: 89-year-old male who is quite complex comes to the ER for altered mental status and hypotension. I spoke with on-call surgeon as well as patient's surgeon Dr. King who did the bilateral lower extremity wound debridement yesterday. She advised to go ahead and change the left lower extremity dressing since it is quite saturated. Dressing was removed by myself and per recommendations of Dr. King bacitracin applied over the deep wound with nonadhesive dressing, 4 x 4's and ABD with pressure dressing of a thick Jacob wrap to left lower extremity. There is no obvious signs symptoms of infection no purulent drainage oozing/bleeding appears to have subsided. Patient was given a liter of IV fluids to help with the hypotension reports he has had minimal intake today due to the altered mental status, hallucinations. Patient says that he is absolutely confident he will not be able to ambulate out of bed right now still feeling very lethargic and weak. I spoke with on-call hospitalist Elli Black and she has agreed to admit the patient for altered mental status and accidental opioid overdose. Labs reveal mild leukocytosis, 11.4, hemoglobin 9.8, hematocrit 31.5 anemic this likely from procedure. PT 14.4, INR 1.3 no electrolyte abnormalities BUN slightly elevated at 29, creatinine 2.2, GFR 28 most likely due to chronic kidney disease plus some dehydration. Tylenol level of 0.6. Patient and are very agreeable to stay for hospitalization overnight until we can help him get metabolized and stronger his feet. Dr. King aware that patient will be admitted Discharge Plan Discharge Patient Disposition: ED Place in Observation Condition: Fair Clinical Impression: Accidental overdose, Altered mental status, Post-operative complication Prescriptions: No Action metoprolol tartrate 25 mg tablet 25 mg PO BID furosemide 20 mg tablet 20 mg PO DAILY latanoprost 0.005 % drops 1 drp ophthalmic (eye) DAILY dorzolamide-timolol 22.3-6.8 mg/mL drops 1 drp ophthalmic (eye) BID dabigatran etexilate [Pradaxa] 75 mg capsule 75 mg PO BID oxycodone 5 mg tablet 5 mg PO Q4H PRN (Reason: Pain) Qty: 30 0RF Rx Instructions: Take with food. Do Not drive while taking medication. calcium carbonate [Tums] 200 mg calcium (500 mg) tablet,chewable 200 mg PO BID PreserVision AREDS-2 250-90-40-1 mg capsule 1 tab PO BID Print Language: Cambodian Stand Alone Forms: PCP List
[2024-11-25 18:53] LABS: BASOPHILS % (AUTO) 0.1 %; HCT - HEMATOCRIT 31.5 % (42.0-52.0); HGB - HEMOGLOBIN 9.8 g/dL (14.0-18.0); LYMPHOCYTES # (AUTO) 0.9 10^3/uL (1.5-3.5); LYMPHOCYTES % (AUTO) 7.9 %; MEAN CORPUSCULAR HEMOGLOBIN 32.8 pg (27.0-31.0); MEAN CORPUSCULAR HGB CONC 31.1 g/dL (32.0-36.0); MEAN CORPUSCULAR VOLUME 105.4 fL (80.0-94.0); MEAN PLATELET VOLUME 9.4 fL (7.4-11.4); MONOCYTES # (AUTO) 0.9 10^3/uL (0.0-1.0); MONOCYTES % (AUTO) 7.7 %; NEUTROPHILS # (AUTO) 9.5 10^3/uL (1.5-6.6); NEUTROPHILS % (AUTO) 83.8 %; PLT - PLATELET COUNT 211 10^3/uL (130-450); RED BLOOD COUNT 2.99 10^6/uL (4.70-6.10); RED CELL DISTRIBUTION WIDTH 15.5 % (12.0-15.0); WHITE BLOOD COUNT 11.4 x10^3/uL (4.8-10.8)
[2024-11-25 19:00] LABS: INR 1.3 (0.8-1.2); PT - PROTHROMBIN TIME 14.4 secs (9.9-12.6)
[2024-11-25 19:08] LABS: CALCIUM 8.9 mg/dL (8.5-10.3); CREATININE 2.2 mg/dL (0.6-1.3); POTASSIUM 4.1 mmol/L (3.5-4.5)
[2024-11-25] MEDS: BACITRACIN ZINC OINT 1 PACKET TOP STA (20:30)
--- NOTE | 2024-11-25 21:23 | HISTORY & PHYSICAL EXAMINATION ---
Chief Complaint Chief Complaint Chief Complaint: Altered mental status History of Present Illness History Obtained From Records Reviewed: surgery notes History obtained from: Patient and spouse History of Present Illness HPI Comment/Other: 89-year-old male who presents to the emergency department for altered mental status. He had debridement of his bilateral lower extremity wounds on 11/24. 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 He has been seen in wound care for some number of weeks. In any event he was discharged to home about 36 hours ago and his is instructed to give him 1000 mg of Tylenol every 4 hours and oxycodone 5 mg every 4 hours whether he needed or not. Thusly she has been giving him either Tylenol or oxycodone every 2 hours. His last dose of oxycodone was about 7 hours ago. About 2 hours after his most recent dose of oxycodone she decided he needed to get up and go to the bathroom. He had trouble getting down the hallway and ended up sitting in a chair way in the hallway for about an hour while he decided what to do. She was unable to get him up and therefore they called the paramedics he was brought here for altered mental status. Since he has been in the emergency department it has been about 7 hours since his last dose of oxycodone. His mental status is clearing. His pain level is relatively well- controlled. His last dose of Tylenol was quite early this morning because his decided that maybe his pain was not that bad and he did not need it. His PCP was previously Dr. Epps who has retired. He has been in the process of getting established with Dr. Rivas's office but does not have a currently established relationship. He is seen weekly in the wound care center on Wednesdays and general surgery, Dr. King debrided his lower extremities yesterday. He states that he previously had a POLST that was DNR but he is thought about it recently and he would like to be full code. His Rosalia would be his surrogate decision maker. He has a daughter who lives in [place] and a son who lives in [place]. Meds/Allgy Home Medications Ambulatory Orders Medication Instructions Recorded Confirmed dabigatran etexilate 75 mg capsule 75 mg PO BID 08/20/24 11/24/24 (Pradaxa) dorzolamide 22.3 mg-timolol 6.8 1 drp ophthalmic (eye) BID 08/20/24 11/24/24 mg/mL eye drops furosemide 20 mg tablet 20 mg PO DAILY 08/20/24 11/24/24 latanoprost 0.005 % eye drops 1 drp ophthalmic (eye) DAILY 08/20/24 11/24/24 metoprolol tartrate 25 mg tablet 25 mg PO BID 08/20/24 11/24/24 calcium carbonate (Tums) 200 mg PO BID 09/07/24 11/24/24 vit C 250 mg-vit E 90 mg-zinc 40 1 tab PO BID 09/07/24 11/24/24 mg-copper 1 [id number] capsule (PreserVision AREDS-2) oxycodone 5 mg tablet 5 mg PO Q4H PRN Pain #30 tabs 11/24/24 Allergies Allergies Allergy/AdvReac Type Severity Reaction Status Date / Time diclofenac AdvReac Severe Hives Verified 11/25/24 18:29 PFSH Active Problems All Active Problems (Updated 11/25/24 @ 21:30 by HELGA Guardado) Post-operative complication (Acute) Altered mental status (Acute) Accidental overdose (Acute) Skin tear of right lower leg without complication (Acute) Skin tear of left lower leg without complication (Acute) SAVANAH (acute kidney injury) (Acute) Dehydration (Acute) Skin tear (Acute) Arterial insufficiency of lower extremity (Acute) Localized edema (Acute) Non-pressure chronic ulcer of unspecified part of left lower leg with fat layer exposed (Acute) Ulcer of left lower leg (Acute) Medical History Medical History (Updated 11/25/24 @ 21:30 by HELGA Guardado) Chronic kidney disease (CKD) Hx of prostatic malignancy Diabetes mellitus A-fib HTN (hypertension) Surgical History Surgical History (Updated 11/17/24 @ 11:21 by Jyoti Duque RN) Hx of prostatectomy Social History Social History (Updated 11/17/24 @ 11:22 by Jyoti Duque, RN) Smoking Status: Never smoker Second hand tobacco smoke exposure: No Do you dip or chew tobacco?: No Do you vape?: No Patient requests smoking cessation consult: No Initiate information on smoking cessation: No Living arrangement: At home Marital Status: Relationship: Home Mobility Equipment: Walker Do you feel safe in your home environment?: Yes Suffered physical, verbal, emotional, or financial abuse?: No History of Abuse: No ETOH Use: Liquor Frequency: Weekly Number of Amount/day: 1 ETOH Use Details: 1 drink 3-4 times per week Substance Use: denies use and cannabis (any form) POLST Patient has POLST: No POLST Status: Full Code Review of Systems Status of ROS: 10 or more systems reviewed and unremarkable except as noted in history and below Prior Level of Functionality: Ambulates on a limited basis. Has home health 2 times a week as well as a retail sales advisor who helps with bathing Exam Constitutional normal general appearance and no apparent distress HENMT normocephalic and head/scalp atraumatic Eyes conjunctivae normal and no scleral icterus Neck/C-Spine visual inspection normal Lymph no lymphadenopathy noted Chest palpation of chest normal Respiratory breath sounds equal bilaterally and clear to auscultation bilaterally Cardiovascular irregularly irregular, a fib with rate 90 on monitor. weakly palpable DP on the right, on the left DP pulse is not palpable Gastrointestinal abdomen normal to inspection and abdomen soft to palpation Extremities wounds present, are dressed at BLE with serosanguinous drainage. changed recently by ED provider. Neurology trademark affixer II-XII intact, no movement abnormality noted, no focal motor deficit noted, speech normal and GCS 15 Psychiatry mental status grossly normal, oriented x3, thought process normal, cooperative and affect normal Skin skin color normal Conclusion/Plan Problem List (1) Altered mental status: Plan: Presents with altered mental status having taken oxycodone [id number] for a little over 24 hours. Unable to ambulate at home. It is currently been about 7 hours since his last dose of oxycodone and he is starting to clear. He is oriented x 3. I also have concerns about his ingestion of Tylenol. His is giving him 1000 mg of Tylenol every 4 hours. Likely she stopped doing this after a little less than 24 hours. His Tylenol level is within normal limits. I will check CMP in the AM. He was hypotensive per the medics at 80s over 40s. He has been normotensive in the emergency department. (2) Arterial insufficiency of lower extremity: Plan: Patient with chronic wounds. He had ABIs performed in this facility on October 18, 2024. On the right side he has an SHANTANU of 1.16. This is probably artificially elevated due to vessel calcifications, however the signal in his posterior tibial artery was biphasic and was biphasic in his dorsalis pedis artery. On the left side also had an elevated SHANTANU of greater than 1 with biphasic signals at the posterior tibial artery and biphasic at the dorsalis pedis artery. He does have diminished peak arterial velocities in the DPs and PTs. He has not had evaluation by vascular surgeon nor has he had further diagnostic studies. At this time he does not appear acutely infected or acutely ischemic and therefore I believe he does not warrant transfer to a center with a vascular surgeon. Briefly discussed with Dr. King. No active issues from the surgical perspective at this time. s and consultation with other providers.. Monitoring the patient's signs symptoms, evaluation of medication effectiveness and patient's response to treatment. (3) Skin tear of left lower leg without complication: Plan: Left lower extremity wound pictures evaluated. The wounds look clean. There is serosanguineous drainage on the dressings. Dressings were just changed by the emergency department staff. Qualifiers: Encounter type: subsequent encounter Qualified Code(s): S81.812D - Laceration without foreign body, left lower leg, subsequent encounter (4) Skin tear of right lower leg without complication: Plan: Same as above. Wound care photos evaluated. There is serosanguineous drainage. Qualifiers: Encounter type: subsequent encounter Qualified Code(s): S81.811D - Laceration without foreign body, right lower leg, subsequent encounter (5) Chronic kidney disease (CKD): Plan: No foul smell no evidence of infection. Creatinine hovering around 2 this month. Previous readings are from 2021. (6) A-fib: Plan: Atrial fibrillation on Pradaxa. I am holding this due to these wounds and the aserosanguineous drainage. He is also on metoprolol which I have resumed. (7) HTN (hypertension): Plan: Was hypotensive at home and normotensive here in the emergency department. I will continue his metoprolol for rate control his heart rate has been well less than 100 in the emergency department. He has not been bradycardic. Plan I have discussed this patient with the emergency department provider Jessa Chinchilla. Decision was made to admit the patient due to his advanced age and inability to ambulate along with accidental overdose of oxycodone. I will admit him to observation status. I have spent 65 minutes in the care of this patient today. This includes time [id number], review and ordering of diagnostic imaging and laboratory studie Lab Results Lab results reviewed: Yes 11/25/24 18:44 11/25/24 18:44 Diagnostic Imaging Results Diagnostic Imaging Results Comments: reviewed vascular studies from 10/18. results discussed above. Core Measures Anticipated LOS I expect patient to be DC'd or transferred within 96 hours.: Yes Issues Hospital Issues and Management Plan: accidental oxycodone overdose. Will monitor mental status. Likely home tomorrow, OBS status. DVT/VTE - Prophylaxis VTE/DVT Device ordered at admit?: No Not Ordered - Medical Reason: Contraindicated (wounds) VTE/DVT Prophylaxis med ordered at admit?: Yes
[2024-11-25] MEDS ORDERED: SODIUM CHLORIDE FLUSH 0.9% 10 ML SYRINGE IVP PRN (21:42)
[2024-11-25] MEDS ORDERED: HYDROmorphone 0.5 MG/0.5 ML SYRINGE IVP PRN (21:42)
[2024-11-25] MEDS ORDERED: ONDANSETRON ODT 4 MG TABLET TL PRN (21:42)
[2024-11-25] MEDS: METOPROLOL TARTRATE 25 MG TABLET PO SCH (22:53)
[2024-11-25] MEDS: SODIUM CHLORIDE FLUSH 0.9% 10 ML SYRINGE IVP SCH (23:56)
[2024-11-26 05:39] LABS: BASOPHILS % (AUTO) 0.2 %; EOSINOPHILS % (AUTO) 0.2 %; HCT - HEMATOCRIT 29.3 % (42.0-52.0); HGB - HEMOGLOBIN 9.1 g/dL (14.0-18.0); LYMPHOCYTES # (AUTO) 1.2 10^3/uL (1.5-3.5); LYMPHOCYTES % (AUTO) 14.5 %; MEAN CORPUSCULAR HEMOGLOBIN 32.4 pg (27.0-31.0); MEAN CORPUSCULAR HGB CONC 31.1 g/dL (32.0-36.0); MEAN CORPUSCULAR VOLUME 104.3 fL (80.0-94.0); MEAN PLATELET VOLUME 9.5 fL (7.4-11.4); MONOCYTES % (AUTO) 11.7 %; PLT - PLATELET COUNT 178 10^3/uL (130-450); RED BLOOD COUNT 2.81 10^6/uL (4.70-6.10); RED CELL DISTRIBUTION WIDTH 15.3 % (12.0-15.0); WHITE BLOOD COUNT 8.2 x10^3/uL (4.8-10.8)
[2024-11-26 05:57] LABS: ALBUMIN 3.2 g/dL (3.2-5.5); ALBUMIN/GLOBULIN RATIO 1.6 (1.0-2.2); BILIRUBIN,TOTAL 0.7 mg/dL (0.2-1.0); CALCIUM 8.4 mg/dL (8.5-10.3); CREATININE 2.1 mg/dL (0.6-1.3); POTASSIUM 3.7 mmol/L (3.5-4.5); TOTAL PROTEIN 5.2 g/dL (6.4-8.9)
[2024-11-26] MEDS: DORZOLAMIDE/TIMOLOL OPHTH DROPS EACHEYE SCH (08:36)
[2024-11-26] MEDS: FUROSEMIDE 20 MG TABLET PO SCH (08:37)
[2024-11-26] MEDS: HEPARIN 5,000 UNIT/ML VIAL SUBQ SCH (08:39)
[2024-11-26] MEDS: LATANOPROST 0.005% OPHTH DROPS EACHEYE SCH (08:39)
--- NOTE | 2024-11-26 12:23 | PHARMACY PROGRESS NOTE ---
Best Possible Medication History Admit Date and Time: 11/25/24 2116 Home Medications Medication Instructions Recorded Confirmed Type dabigatran etexilate 75 mg capsule 75 mg PO BID 08/20/24 11/26/24 History (Pradaxa) dorzolamide 22.3 mg-timolol 6.8 1 drp ophthalmic (eye) BID 08/20/24 11/26/24 History mg/mL eye drops furosemide 20 mg tablet 20 mg PO DAILY 08/20/24 11/26/24 History latanoprost 0.005 % eye drops 1 drp ophthalmic (eye) DAILY 08/20/24 11/26/24 History metoprolol tartrate 25 mg tablet 25 mg PO BID 08/20/24 11/26/24 History calcium carbonate (Tums) 200 mg PO BID 09/07/24 11/26/24 History vit C 250 mg-vit E 90 mg-zinc 40 1 tab PO BID 09/07/24 11/26/24 History mg-copper 1 [id number] capsule (PreserVision AREDS-2) oxycodone 5 mg tablet 5 mg PO Q4H PRN Pain #30 tabs 11/24/24 11/26/24 Rx lisinopril 5 mg tablet 5 mg PO DAILY 11/26/24 11/26/24 History Processed by: Pharmacy Medications reviewed in ED?: No Medication History completed: Yes Patient Interview: Pt unable to participate Secondary Source(s): Insurance records [facility] Statement: Per [employer] insurance records. Reviewed with [facility]. Chart record from recent wound care. As the person ultimately responsible for medication therapy, providers are able to order a medication from an existing home medication list in [facility] via the "Reconcile Routine" prior to Confirmation of that medication by support engineer. Such practice is discouraged except when the physician, in their clinical judgment, deems that a medical need exists for a medication without regard to previous use.
--- NOTE | 2024-11-26 15:01 | PT Plan of Care ---
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/25/24 MEDICAL/SURGICAL HISTORY Medical History (Updated 11/25/24 @ 21:30 by HELGA Guardado) Chronic kidney disease (CKD) Hx of prostatic malignancy Diabetes mellitus A-fib HTN (hypertension) Surgical History (Updated 11/17/24 @ 11:21 by Jyoti Duque RN) Hx of prostatectomy BALANCE/FUNCTIONAL RESULTS Sitting Balance: Fair Standing Balance: Poor Tinetti Composite Score (Balance + Gait): 7 Tinetti Assessment Interpretation: High Fall Risk ASSESSMENT Assessment: The pt is an 89 y/o M who arrived to the ED on 11/25/24 due to AMS after receiving too much oxycodone as a result of a misunderstanding of recent DC instructions on the medication. He was hospitalized with a-fib and being monitored for reactions from the oxycodone. Please see chart for medical hx. The pt was received resting comfortably supine in bed and presented today with decreased B UE and LE strength, poor activity tolerance, and poor standing balance which limited his tolerance with functional mobility. His overall tolerance throughout this assessment was limited by weakness and fatigue, his only pain was with palpation to LE's while donning socks. At this time recommend continued skilled PT intervention while in the acute setting and DC to SNF for further rehab once pt medically stable. This plan was discussed with the pt and his , they were both in agreement with this. At the end of the session the pt was sitting up in a chair with call light in reach, chair alarm in place and on, and all needs met while visiting with his . RN and PA updated on pt's status and DC rec. PATIENT/FAMILY GOALS Patient/Family Goals: "to get stronger so the I can go back home" GOALS Improve supine to sit to:: Modified Independent Improve sit to stand to:: Modified Independent Improve pivot transfer ability to:: Modified Independent Improve sit to supine to:: Modified Independent Improve gait ability to:: SBA Advance Assistive Device to:: Front Wheeled Walker Increase distance walked to (in feet):: 25 Improve Sitting Balance to:: Good PLAN Frequency: 1-2x/day Duration: Until discharge DISCHARGE RECOMMENDATIONS Discharge Location: [facility] Facility Support/Services Needed: With assist Other Discharge Equipment: pt owns all recommended DME Transport Needs at Discharge: Wheelchair van
[2024-11-26] MEDS: ACETAMINOPHEN 325 MG TABLET PO PRN (16:13)
--- NOTE | 2024-11-26 17:25 | PROVIDER PROGRESS NOTE ---
Assessment/Plan Problem List (1) Altered mental status: Assessment/Plan: -Yesterday patient was taking oxycodone 5mg q4 hours for 24 hours. Last dose yesterday afternoon. -Patient is alert and oriented x 4. Labs unremarkable for age and history. Tylenol level WNL at .6 last night. BP has been within normal limits. -PT eval completed today. Patient was not able to walk more than 5 steps with heavy assistance from PT. -PT recommended SNF, not able to transfer today because places are closed, will attempt to transfer tomorrow. (2) Arterial insufficiency of lower extremity: Assessment/Plan: -Patient with chronic wounds. -SHANTANU on right lower extremity 1.16 10/28/24. This is probably artificially elevated due to vessel calcifications, however the signal in his posterior tibial artery was biphasic and was biphasic in his dorsalis pedis artery. On the left side also had an elevated SHANTANU of greater than 1 with biphasic signals at the posterior tibial artery and biphasic at the dorsalis pedis artery. He does have diminished peak arterial velocities in the DPs and PTs. He has not had evaluation by vascular surgeon nor has he had further diagnostic studies. Does not appear ischemic, does not require vascular consult at this time. (3) Skin tear of left lower leg without complication: Qualifiers: Encounter type: subsequent encounter Qualified Code(s): S81.812D - Laceration without foreign body, left lower leg, subsequent encounter Assessment/Plan: -Left lower extremity wounds from arterial insufficiency of lower extremity, debridement done on 11/24/24. -patient had wound care BIW with home health, qweekly in outpatient clinic -Wound care completed today, wound dressed with xeroform gauze -will continue to change dressings daily. -patient takes pradaxa for afib, temporarily discontinued this yesterday due to leg wounds, restarting today for afib prophylaxis (4) Skin tear of right lower leg without complication: Qualifiers: Encounter type: subsequent encounter Qualified Code(s): S81.811D - Laceration without foreign body, right lower leg, subsequent encounter Assessment/Plan: Same as above. (5) Chronic kidney disease (CKD): Assessment/Plan: -Patient has history of CKD, has previously been recommended to see nephrology and he declined. -Most recent GFR 30, creatinine 2.2, this appears to be baseline according to chart review (6) A-fib: Assessment/Plan: -Chronic, stable. In afib on ekg 11/25/24. -Discontinued Pradaxa due to leg wounds -Patient takes pradaxa for afib, temporarily discontinued this yesterday due to leg wounds, restarting today for afib prophylaxis -continue home medication of metoprolol tartrate 25 mg BID (7) HTN (hypertension): Assessment/Plan: -BP ranges in 120s/70s -continue home medications of metoprolol tartrate 25 mg BIDand lisinopril 5 mg qd and furosemide 20mg qd Current Meds Current Meds: Current Medications Generic Name Dose Route Start Last Admin Trade Name Freq PRN Reason Stop Dose Admin Acetaminophen 650 mg 11/26/24 15:44 11/26/24 16:13 Acetaminophen 325 Mg Tablet PO 650 mg Q4HR PRN Administration Pain or Fever > 38C (100.4F) Dorzolamide/Timolol 1 drops 11/26/24 09:00 11/26/24 08:36 Dorzolamide/Timolol Ophth Drops EACHEYE 1 drops BID JOAN Administration Furosemide 20 mg 11/26/24 09:00 11/26/24 08:37 Furosemide 20 Mg Tablet PO 20 mg DAILY JOAN Administration Heparin Sodium (Porcine) 5,000 unit 11/26/24 09:00 11/26/24 08:39 Heparin 5,000 Unit/Ml Vial SUBQ 5,000 unit BID JOAN Administration Hydromorphone HCl 0.5 mg 11/25/24 21:42 Hydromorphone 0.5 Mg/0.5 Ml Syringe IVP Q2H PRN Pain 8 to 10 Latanoprost 1 drops 11/26/24 09:00 11/26/24 08:39 Latanoprost 0.005% Ophth Drops EACHEYE Not Given DAILY JOAN Metoprolol Tartrate 25 mg 11/25/24 22:00 11/26/24 08:37 Metoprolol Tartrate 25 Mg Tablet PO 25 mg BID JOAN Administration Ondansetron HCl 4 mg 11/25/24 21:42 Ondansetron Odt 4 Mg Tablet TL Q6HR PRN Nausea / Vomiting Sodium Chloride 10 ml 11/25/24 21:42 Sodium Chloride Flush 0.9% 10 Ml Syringe IVP PRN PRN NEEDED PER PROVIDER ORDERS Sodium Chloride 10 ml 11/26/24 01:00 11/26/24 16:13 Sodium Chloride Flush 0.9% 10 Ml Syringe IVP 10 ml 0100,0900,1700 JOAN Administration Lab Result Lab results reviewed: Yes 11/26/24 05:33 11/26/24 05:33 EKG Results EKG Interpreted Independently: Yes Additional Planning Condition/Complexity: Stable Subjective Subjective Patient Reports: Resting Comfortably Nursing Reports: Other (Patient states he felt very weak during physical therapy, denies shortness of breath) Objective Vital Signs: Vital Signs - 24 hr 11/25/24 18:26 11/25/24 19:00 11/25/24 21:00 Temperature 36.6 C Temperature Source Temporal Artery Scan Pulse Rate 86 92 88 Pulse Rate [Brachial] Pulse Rate [Monitoring electrodes] Pulse Rate [Sitting] Pulse Rate [Supine] Respiratory Rate 19 20 16 Blood Pressure 111/67 123/82 105/70 Blood Pressure [Left Brachial artery] Blood Pressure [Sitting] Blood Pressure [Supine] O2 Saturation 98 98 97 O2 Source Room air Room air Room air Sedation scale Pain Intensity 8 1 Pain Intensity [Bilateral Lower extremity] 11/25/24 22:00 11/26/24 00:01 11/26/24 04:55 Temperature 36.7 C 36.9 C 36.7 C Temperature Source Temporal Artery Scan Temporal Artery Scan Temporal Artery Scan Pulse Rate Pulse Rate [Brachial] 96 Pulse Rate [Monitoring electrodes] 92 93 Pulse Rate [Sitting] Pulse Rate [Supine] Respiratory Rate 18 20 20 Blood Pressure Blood Pressure [Left Brachial artery] 124/68 123/78 123/78 Blood Pressure [Sitting] Blood Pressure [Supine] O2 Saturation 97 97 98 O2 Source Room air Room air Room air Sedation scale 0-Fully awake 0-Fully awake Pain Intensity 0 Pain Intensity [Bilateral Lower extremity] 11/26/24 08:08 11/26/24 08:37 11/26/24 12:16 Temperature 36.6 C 36.6 C Temperature Source Temporal Artery Scan Temporal Artery Scan Pulse Rate 104 H Pulse Rate [Brachial] 110 H 82 Pulse Rate [Monitoring electrodes] Pulse Rate [Sitting] Pulse Rate [Supine] Respiratory Rate 18 20 Blood Pressure 131/86 H Blood Pressure [Left Brachial artery] 131/86 H 117/64 Blood Pressure [Sitting] Blood Pressure [Supine] O2 Saturation 97 98 O2 Source Room air Room air Sedation scale 0-Fully awake 1-Arouses easily Pain Intensity 0 0 Pain Intensity [Bilateral Lower extremity] 11/26/24 13:25 11/26/24 15:32 11/26/24 16:13 Temperature 36.7 C Temperature Source Temporal Artery Scan Pulse Rate Pulse Rate [Brachial] 88 Pulse Rate [Monitoring electrodes] Pulse Rate [Sitting] 93 Pulse Rate [Supine] 94 Respiratory Rate 18 Blood Pressure Blood Pressure [Left Brachial artery] 121/75 Blood Pressure [Sitting] 118/78 Blood Pressure [Supine] 115/78 O2 Saturation 96 O2 Source Room air Sedation scale 0-Fully awake Pain Intensity 2 3 Pain Intensity [Bilateral Lower extremity] 11/26/24 16:13 Temperature Temperature Source Pulse Rate Pulse Rate [Brachial] Pulse Rate [Monitoring electrodes] Pulse Rate [Sitting] Pulse Rate [Supine] Respiratory Rate Blood Pressure Blood Pressure [Left Brachial artery] Blood Pressure [Sitting] Blood Pressure [Supine] O2 Saturation O2 Source Sedation scale Pain Intensity Pain Intensity [Bilateral Lower extremity] 3 Oxygen O2 Source Room air I&O (Last 24 Hrs): Intake and Output Totals x24h 11/24/24 11/25/24 11/26/24 23:59 23:59 23:59 Intake Total 50 / 50 420 / 420 Output Total 500 / 500 Balance 50 / 50 -80 / -80 General: Alert, Oriented x3 and Cooperative HEENT: Atraumatic, PERRLA and EOMI Neck: Supple Neuro: Alert, CN 2-12 Grossly Intact and Oriented Times 3 Cardiovascular: Other (irregularly irregular) Respiratory: Chest non-tender and No respiratory distress Extremities: Other (minimal to no drainage, no active bleeding, granulation tissue present on bilateral lower extremity wounds. Refer to nursing pictures. ) Results Results: Laboratory Results WBC 8.2 x10^3/uL (4.8-10.8) 11/26/24 05:33 RBC 2.81 10^6/uL (4.70-6.10) L 11/26/24 05:33 Hgb 9.1 g/dL (14.0-18.0) L 11/26/24 05:33 Hct 29.3 % (42.0-52.0) L 11/26/24 05:33 MCV 104.3 fL (80.0-94.0) H 11/26/24 05:33 MCH 32.4 pg (27.0-31.0) H 11/26/24 05:33 MCHC 31.1 g/dL (32.0-36.0) L 11/26/24 05:33 RDW 15.3 % (12.0-15.0) H 11/26/24 05:33 Plt Count 178 10^3/uL (130-450) 11/26/24 05:33 MPV 9.5 fL (7.4-11.4) 11/26/24 05:33 Neut # (Auto) 6.0 10^3/uL (1.5-6.6) 11/26/24 05:33 Lymph # (Auto) 1.2 10^3/uL (1.5-3.5) L 11/26/24 05:33 Teller # (Auto) 1.0 10^3/uL (0.0-1.0) 11/26/24 05:33 Eos # (Auto) 0.0 10^3/uL (0.0-0.7) 11/26/24 05:33 Baso # (Auto) 0.0 10^3/uL (0.0-0.1) 11/26/24 05:33 Absolute Nucleated RBC 0.00 x10^3/uL 11/26/24 05:33 Nucleated RBC % 0.0 /100WBC 11/26/24 05:33 PT 14.4 secs (9.9-12.6) H 11/25/24 18:44 INR 1.3 (0.8-1.2) H 11/25/24 18:44 Sodium 135 mmol/L (135-145) 11/26/24 05:33 Potassium 3.7 mmol/L (3.5-4.5) 11/26/24 05:33 Chloride 105 mmol/L (101-111) 11/26/24 05:33 Carbon Dioxide 23 mmol/L (21-32) 11/26/24 05:33 Anion Gap 7.0 (6-13) 11/26/24 05:33 BUN 29 mg/dL (6-20) H 11/26/24 05:33 Creatinine 2.1 mg/dL (0.6-1.3) H 11/26/24 05:33 Estimated GFR (MDRD) 30 (>89) L 11/26/24 05:33 Glucose 106 mg/dL (74-104) H 11/26/24 05:33 Calcium 8.4 mg/dL (8.5-10.3) L 11/26/24 05:33 Total Bilirubin 0.7 mg/dL (0.2-1.0) 11/26/24 05:33 AST 11 IU/L (10-42) 11/26/24 05:33 ALT 9 IU/L (10-60) L 11/26/24 05:33 Alkaline Phosphatase 85 IU/L (42-121) 11/26/24 05:33 Total Protein 5.2 g/dL (6.4-8.9) L 11/26/24 05:33 Albumin 3.2 g/dL (3.2-5.5) 11/26/24 05:33 Globulin 2.0 g/dL (2.1-4.2) L 11/26/24 05:33 Albumin/Globulin Ratio 1.6 (1.0-2.2) 11/26/24 05:33 Acetaminophen 0.6 ug/mL 11/25/24 18:44 Blood Type O POSITIVE 11/25/24 18:44 Blood Type Recheck O POSITIVE 11/25/24 19:48 Antibody Screen NEGATIVE 11/25/24 18:44 Current Medications Current Medications Current Medications: Current Medications Generic Name Dose Route Start Last Admin Trade Name Freq PRN Reason Stop Dose Admin Acetaminophen 650 mg 11/26/24 15:44 11/26/24 16:13 Acetaminophen 325 Mg Tablet PO 650 mg Q4HR PRN Administration Pain or Fever > 38C (100.4F) Dorzolamide/Timolol 1 drops 11/26/24 09:00 11/26/24 08:36 Dorzolamide/Timolol Ophth Drops EACHEYE 1 drops BID JOAN Administration Furosemide 20 mg 11/26/24 09:00 11/26/24 08:37 Furosemide 20 Mg Tablet PO 20 mg DAILY JOAN Administration Heparin Sodium (Porcine) 5,000 unit 11/26/24 09:00 11/26/24 08:39 Heparin 5,000 Unit/Ml Vial SUBQ 5,000 unit BID JOAN Administration Hydromorphone HCl 0.5 mg 11/25/24 21:42 Hydromorphone 0.5 Mg/0.5 Ml Syringe IVP Q2H PRN Pain 8 to 10 Latanoprost 1 drops 11/26/24 09:00 11/26/24 08:39 Latanoprost 0.005% Ophth Drops EACHEYE Not Given DAILY JOAN Metoprolol Tartrate 25 mg 11/25/24 22:00 11/26/24 08:37 Metoprolol Tartrate 25 Mg Tablet PO 25 mg BID JOAN Administration Ondansetron HCl 4 mg 11/25/24 21:42 Ondansetron Odt 4 Mg Tablet TL Q6HR PRN Nausea / Vomiting Sodium Chloride 10 ml 11/25/24 21:42 Sodium Chloride Flush 0.9% 10 Ml Syringe IVP PRN PRN NEEDED PER PROVIDER ORDERS Sodium Chloride 10 ml 11/26/24 01:00 11/26/24 16:13 Sodium Chloride Flush 0.9% 10 Ml Syringe IVP 10 ml 0100,0900,1700 JOAN Administration
[2024-11-26] MEDS: APIXABAN 5 MG TABLET PO SCH (20:50)
[2024-11-26] MEDS ORDERED: DABIGATRAN ETEXILATE PO SCH (21:00)
[2024-11-27 05:12] LABS: BASOPHILS % (AUTO) 0.3 %; EOSINOPHILS # (AUTO) 0.1 10^3/uL (0.0-0.7); EOSINOPHILS % (AUTO) 1.7 %; HCT - HEMATOCRIT 28.4 % (42.0-52.0); HGB - HEMOGLOBIN 8.8 g/dL (14.0-18.0); LYMPHOCYTES # (AUTO) 1.5 10^3/uL (1.5-3.5); LYMPHOCYTES % (AUTO) 19.3 %; MEAN CORPUSCULAR HEMOGLOBIN 31.8 pg (27.0-31.0); MEAN CORPUSCULAR VOLUME 102.5 fL (80.0-94.0); MONOCYTES % (AUTO) 13.3 %; NEUTROPHILS # (AUTO) 4.9 10^3/uL (1.5-6.6); NEUTROPHILS % (AUTO) 64.9 %; PLT - PLATELET COUNT 173 10^3/uL (130-450); RED BLOOD COUNT 2.77 10^6/uL (4.70-6.10); RED CELL DISTRIBUTION WIDTH 14.9 % (12.0-15.0); WHITE BLOOD COUNT 7.6 x10^3/uL (4.8-10.8)
[2024-11-27 05:23] LABS: CALCIUM 8.3 mg/dL (8.5-10.3); CREATININE 1.9 mg/dL (0.6-1.3); POTASSIUM 3.4 mmol/L (3.5-4.5)
--- NOTE | 2024-11-27 13:55 | PROVIDER PROGRESS NOTE ---
Assessment/Plan <Paige Cintron - Last Filed: 11/27/24 16:03> Problem List (1) Weakness: Assessment/Plan: -Patient had evaluation by PT yesterday and was unable to walk 5 steps with heavy assistance. -weakness likely secondary to age, arterial insufficiency, bilateral leg wounds, deconditioning, potential afib component -looking to transfer patient to SNF, barrier to discharge includes patient covid vaccination required by [facility] -Patient last had covid vaccine 12/2023, but [facility] requiring update -discussed with patient and , they agreed to have vaccination completed there -patient agreeable with plan to transfer to [facility] (2) Altered mental status: Assessment/Plan: Resolved. Patient was AMS following tylenol and oxycodone accidental overdose, 48 hours have passed since last dose. Patient is oriented x 4, lethagic during the day. (3) Arterial insufficiency of lower extremity: Assessment/Plan: -Patient with chronic wounds. -SHANTANU on right lower extremity 1.16 10/28/24. This is probably artificially elevated due to vessel calcifications, however the signal in his posterior tibial artery was biphasic and was biphasic in his dorsalis pedis artery. On the left side also had an elevated SHANTANU of greater than 1 with biphasic signals at the posterior tibial artery and biphasic at the dorsalis pedis artery. He does have diminished peak arterial velocities in the DPs and PTs. He has not had evaluation by vascular surgeon nor has he had further diagnostic studies. Does not appear ischemic, does not require vascular consult at this time. Able to find pedal pulses bilaterally using US doppler, L>R (4) Skin tear of left lower leg without complication: Qualifiers: Encounter type: subsequent encounter Qualified Code(s): S81.812D - Laceration without foreign body, left lower leg, subsequent encounter Assessment/Plan: Left lower extremity wounds from arterial insufficiency of lower extremity, debridement done on 11/24/24. -seen by wound care today, see recommendations below Wound care recommendations: Patient should have [facility] wound VAC to bilateral lower extremity wounds as soon as possible. Right lower extremity: Daily Santyl collagenase ointment to necrotic areas. Then apply damp gauze, overlaid with oil emulsion gauze (not Xeroform), ABD pad then securing dressing Left lower extremity: daily Medihoney overlaid with Aquacel Ag then silicone border dressing. (5) Skin tear of right lower leg without complication: Qualifiers: Encounter type: subsequent encounter Qualified Code(s): S81.811D - Laceration without foreign body, right lower leg, subsequent encounter Assessment/Plan: see above (6) Chronic kidney disease (CKD): Assessment/Plan: -Patient has history of CKD, has previously been recommended to see nephrology and he declined. -Most recent GFR 34, creatinine 1.9, this appears to be baseline according to chart review (7) A-fib: Assessment/Plan: Chronic, stable. In afib on ekg 11/25/24. -continue home medication of metoprolol tartrate 25 mg BID, -home medication of Pradaxa 75 mg PO BID is non formulary, ordered eliquis 5mg PO BID (8) HTN (hypertension): Assessment/Plan: Most recent BP 128/81, BP generally in 120s/70s continue home medications of metoprolol tartrate 25 mg BIDand lisinopril 5 mg qd and furosemide 20mg qd Current Meds Current Meds: Current Medications Generic Name Dose Route Start Last Admin Trade Name Freq PRN Reason Stop Dose Admin Acetaminophen 650 mg 11/26/24 15:44 11/27/24 13:41 Acetaminophen 325 Mg Tablet PO 650 mg Q4HR PRN Administration Pain or Fever > 38C (100.4F) Apixaban 5 mg 11/26/24 21:00 11/27/24 09:40 Apixaban 5 Mg Tablet PO 5 mg BID JOAN Administration Dorzolamide/Timolol 1 drops 11/26/24 09:00 11/27/24 09:41 Dorzolamide/Timolol Ophth Drops EACHEYE 1 drops BID JOAN Administration Furosemide 20 mg 11/26/24 09:00 11/27/24 09:40 Furosemide 20 Mg Tablet PO 20 mg DAILY JOAN Administration Hydromorphone HCl 0.5 mg 11/25/24 21:42 Hydromorphone 0.5 Mg/0.5 Ml Syringe IVP Q2H PRN Pain 8 to 10 Latanoprost 1 drops 11/26/24 09:00 11/27/24 09:41 Latanoprost 0.005% Ophth Drops EACHEYE 1 drops DAILY JOAN Administration Metoprolol Tartrate 25 mg 11/25/24 22:00 11/27/24 09:40 Metoprolol Tartrate 25 Mg Tablet PO 25 mg BID JOAN Administration Multivitamins/Minerals 1 tab 11/27/24 14:00 Multivitamin W/Minerals Tablet PO DAILYWM JOAN Ondansetron HCl 4 mg 11/25/24 21:42 Ondansetron Odt 4 Mg Tablet TL Q6HR PRN Nausea / Vomiting Sodium Chloride 10 ml 11/25/24 21:42 Sodium Chloride Flush 0.9% 10 Ml Syringe IVP PRN PRN NEEDED PER PROVIDER ORDERS Sodium Chloride 10 ml 11/26/24 01:00 11/27/24 09:41 Sodium Chloride Flush 0.9% 10 Ml Syringe IVP 10 ml 0100,0900,1700 JOAN Administration Lab Result Lab results reviewed: Yes 11/27/24 04:44 11/27/24 04:44 Additional Planning Condition/Complexity: Stable <HELGA Guardado - Last Filed: 11/27/24 16:42> Problem List (1) Weakness: (2) Altered mental status: (3) Arterial insufficiency of lower extremity: (4) Skin tear of left lower leg without complication: (5) Skin tear of right lower leg without complication: (6) Chronic kidney disease (CKD): (7) A-fib: (8) HTN (hypertension): Current Meds Current Meds: Current Medications Generic Name Dose Route Start Last Admin Trade Name Freq PRN Reason Stop Dose Admin Acetaminophen 650 mg 11/26/24 15:44 11/27/24 13:41 Acetaminophen 325 Mg Tablet PO 650 mg Q4HR PRN Administration Pain or Fever > 38C (100.4F) Apixaban 5 mg 11/26/24 21:00 11/27/24 09:40 Apixaban 5 Mg Tablet PO 5 mg BID JOAN Administration Dorzolamide/Timolol 1 drops 11/26/24 09:00 11/27/24 09:41 Dorzolamide/Timolol Ophth Drops EACHEYE 1 drops BID JOAN Administration Furosemide 20 mg 11/26/24 09:00 11/27/24 09:40 Furosemide 20 Mg Tablet PO 20 mg DAILY JOAN Administration Hydromorphone HCl 0.5 mg 11/25/24 21:42 Hydromorphone 0.5 Mg/0.5 Ml Syringe IVP Q2H PRN Pain 8 to 10 Latanoprost 1 drops 11/26/24 09:00 11/27/24 09:41 Latanoprost 0.005% Ophth Drops EACHEYE 1 drops DAILY JOAN Administration Metoprolol Tartrate 25 mg 11/25/24 22:00 11/27/24 09:40 Metoprolol Tartrate 25 Mg Tablet PO 25 mg BID JOAN Administration Multivitamins/Minerals 1 tab 11/27/24 14:00 Multivitamin W/Minerals Tablet PO DAILYWM JOAN Ondansetron HCl 4 mg 11/25/24 21:42 Ondansetron Odt 4 Mg Tablet TL Q6HR PRN Nausea / Vomiting Sodium Chloride 10 ml 11/25/24 21:42 Sodium Chloride Flush 0.9% 10 Ml Syringe IVP PRN PRN NEEDED PER PROVIDER ORDERS Sodium Chloride 10 ml 11/26/24 01:00 11/27/24 09:41 Sodium Chloride Flush 0.9% 10 Ml Syringe IVP 10 ml 0100,0900,1700 JOAN Administration Subjective <Paige Cintron - Last Filed: 11/27/24 16:03> Subjective Patient Reports: Resting Comfortably and No Complaints Objective <Paige Cintron - Last Filed: 11/27/24 16:03> Vital Signs: Vital Signs - 24 hr 11/26/24 15:32 11/26/24 16:13 11/26/24 16:13 Temperature 36.7 C Temperature Source Temporal Artery Scan Pulse Rate Pulse Rate [Brachial] 88 Respiratory Rate 18 Blood Pressure Blood Pressure [Left Brachial artery] 121/75 Blood Pressure [Right Brachial artery] O2 Saturation 96 O2 Source Room air Sedation scale 0-Fully awake Pain Intensity 2 3 Pain Intensity [Bilateral Lower extremity] 3 11/26/24 17:30 11/26/24 20:45 11/26/24 20:48 Temperature Temperature Source Pulse Rate 83 Pulse Rate [Brachial] Respiratory Rate Blood Pressure 101/67 Blood Pressure [Left Brachial artery] Blood Pressure [Right Brachial artery] O2 Saturation O2 Source Sedation scale Pain Intensity 1 Pain Intensity [Bilateral Lower extremity] 3 11/26/24 20:48 11/26/24 23:45 11/27/24 01:02 Temperature 36.6 C Temperature Source Temporal Artery Scan Temporal Artery Scan Pulse Rate Pulse Rate [Brachial] 83 90 Respiratory Rate 20 16 Blood Pressure Blood Pressure [Left Brachial artery] 101/67 Blood Pressure [Right Brachial artery] 113/67 O2 Saturation 97 97 O2 Source Room air Room air Sedation scale 1-Arouses easily 1-Arouses easily Pain Intensity 3 2 Pain Intensity [Bilateral Lower extremity] 11/27/24 01:02 11/27/24 01:54 11/27/24 04:53 Temperature 36.6 C Temperature Source Skin Pulse Rate Pulse Rate [Brachial] 92 Respiratory Rate 18 Blood Pressure Blood Pressure [Left Brachial artery] Blood Pressure [Right Brachial artery] 130/76 O2 Saturation 98 O2 Source Room air Sedation scale 1-Arouses easily Pain Intensity 0 Pain Intensity [Bilateral Lower extremity] 2 11/27/24 07:08 11/27/24 09:40 11/27/24 12:09 Temperature 36.5 C 36.5 C Temperature Source Skin Temporal Artery Scan Pulse Rate Pulse Rate [Brachial] 94 84 Respiratory Rate 18 18 Blood Pressure 125/63 Blood Pressure [Left Brachial artery] 128/81 Blood Pressure [Right Brachial artery] 128/86 O2 Saturation 98 98 O2 Source Room air Room air Sedation scale 1-Arouses easily 0-Fully awake Pain Intensity 0 Pain Intensity [Bilateral Lower extremity] 11/27/24 13:41 Temperature Temperature Source Pulse Rate Pulse Rate [Brachial] Respiratory Rate Blood Pressure Blood Pressure [Left Brachial artery] Blood Pressure [Right Brachial artery] O2 Saturation O2 Source Sedation scale Pain Intensity 6 Pain Intensity [Bilateral Lower extremity] Oxygen O2 Source Room air I&O (Last 24 Hrs): Intake and Output Totals x24h 11/25/24 11/26/24 11/27/24 23:59 23:59 23:59 Intake Total 50 / 50 1270 / 1270 Output Total 1200 / 1200 200 / 200 Balance 50 / 50 70 / 70 -200 / -200 General: Oriented x3 and Cooperative HEENT: Atraumatic Neck: Supple Neuro: CN 2-12 Grossly Intact and Oriented Times 3 Cardiovascular: Other (irregularly irregular rate and rhythm, pedal pulses weak, but present with US doppler) Respiratory: Chest non-tender, No respiratory distress, Breath sounds nml and Other (Lungs CTA, no wheezes rhonchi or rales) Extremities: Other (minimal to no drainage, no active bleeding, granulation tissue present on bilateral lower extremity wounds. Refer to nursing pictures.) Results Results: Laboratory Results WBC 7.6 x10^3/uL (4.8-10.8) 11/27/24 04:44 RBC 2.77 10^6/uL (4.70-6.10) L 11/27/24 04:44 Hgb 8.8 g/dL (14.0-18.0) L 11/27/24 04:44 Hct 28.4 % (42.0-52.0) L 11/27/24 04:44 MCV 102.5 fL (80.0-94.0) H 11/27/24 04:44 MCH 31.8 pg (27.0-31.0) H 11/27/24 04:44 MCHC 31.0 g/dL (32.0-36.0) L 11/27/24 04:44 RDW 14.9 % (12.0-15.0) 11/27/24 04:44 Plt Count 173 10^3/uL (130-450) 11/27/24 04:44 MPV 10.0 fL (7.4-11.4) 11/27/24 04:44 Neut # (Auto) 4.9 10^3/uL (1.5-6.6) 11/27/24 04:44 Lymph # (Auto) 1.5 10^3/uL (1.5-3.5) 11/27/24 04:44 [place] # (Auto) 1.0 10^3/uL (0.0-1.0) 11/27/24 04:44 Eos # (Auto) 0.1 10^3/uL (0.0-0.7) 11/27/24 04:44 Baso # (Auto) 0.0 10^3/uL (0.0-0.1) 11/27/24 04:44 Absolute Nucleated RBC 0.00 x10^3/uL 11/27/24 04:44 Nucleated RBC % 0.0 /100WBC 11/27/24 04:44 PT 14.4 secs (9.9-12.6) H 11/25/24 18:44 INR 1.3 (0.8-1.2) H 11/25/24 18:44 Sodium 134 mmol/L (135-145) L 11/27/24 04:44 Potassium 3.4 mmol/L (3.5-4.5) L 11/27/24 04:44 Chloride 104 mmol/L (101-111) 11/27/24 04:44 Carbon Dioxide 23 mmol/L (21-32) 11/27/24 04:44 Anion Gap 7.0 (6-13) 11/27/24 04:44 BUN 30 mg/dL (6-20) H 11/27/24 04:44 Creatinine 1.9 mg/dL (0.6-1.3) H 11/27/24 04:44 Estimated GFR (MDRD) 34 (>89) L 11/27/24 04:44 Glucose 107 mg/dL (74-104) H 11/27/24 04:44 Calcium 8.3 mg/dL (8.5-10.3) L 11/27/24 04:44 Total Bilirubin 0.7 mg/dL (0.2-1.0) 11/26/24 05:33 AST 11 IU/L (10-42) 11/26/24 05:33 ALT 9 IU/L (10-60) L 11/26/24 05:33 Alkaline Phosphatase 85 IU/L (42-121) 11/26/24 05:33 Total Protein 5.2 g/dL (6.4-8.9) L 11/26/24 05:33 Albumin 3.2 g/dL (3.2-5.5) 11/26/24 05:33 Globulin 2.0 g/dL (2.1-4.2) L 11/26/24 05:33 Albumin/Globulin Ratio 1.6 (1.0-2.2) 11/26/24 05:33 Acetaminophen 0.6 ug/mL 11/25/24 18:44 SARS-CoV-2 (PCR) NOT DETECTED 11/27/24 12:00 Blood Type O POSITIVE 11/25/24 18:44 Blood Type Recheck O POSITIVE 11/25/24 19:48 Antibody Screen NEGATIVE 11/25/24 18:44 <HELGA Guardado - Last Filed: 11/27/24 16:42> Vital Signs: Vital Signs - 24 hr 11/26/24 15:32 11/26/24 16:13 11/26/24 16:13 Temperature 36.7 C Temperature Source Temporal Artery Scan Pulse Rate Pulse Rate [Brachial] 88 Respiratory Rate 18 Blood Pressure Blood Pressure [Left Brachial artery] 121/75 Blood Pressure [Right Brachial artery] O2 Saturation 96 O2 Source Room air Sedation scale 0-Fully awake Pain Intensity 2 3 Pain Intensity [Bilateral Lower extremity] 3 11/26/24 17:30 11/26/24 20:45 11/26/24 20:48 Temperature Temperature Source Pulse Rate 83 Pulse Rate [Brachial] Respiratory Rate Blood Pressure 101/67 Blood Pressure [Left Brachial artery] Blood Pressure [Right Brachial artery] O2 Saturation O2 Source Sedation scale Pain Intensity 1 Pain Intensity [Bilateral Lower extremity] 3 11/26/24 20:48 11/26/24 23:45 11/27/24 01:02 Temperature 36.6 C Temperature Source Temporal Artery Scan Temporal Artery Scan Pulse Rate Pulse Rate [Brachial] 83 90 Respiratory Rate 20 16 Blood Pressure Blood Pressure [Left Brachial artery] 101/67 Blood Pressure [Right Brachial artery] 113/67 O2 Saturation 97 97 O2 Source Room air Room air Sedation scale 1-Arouses easily 1-Arouses easily Pain Intensity 3 2 Pain Intensity [Bilateral Lower extremity] 11/27/24 01:02 11/27/24 01:54 11/27/24 04:53 Temperature 36.6 C Temperature Source Skin Pulse Rate Pulse Rate [Brachial] 92 Respiratory Rate 18 Blood Pressure Blood Pressure [Left Brachial artery] Blood Pressure [Right Brachial artery] 130/76 O2 Saturation 98 O2 Source Room air Sedation scale 1-Arouses easily Pain Intensity 0 Pain Intensity [Bilateral Lower extremity] 2 11/27/24 07:08 11/27/24 09:40 11/27/24 12:09 Temperature 36.5 C 36.5 C Temperature Source Skin Temporal Artery Scan Pulse Rate Pulse Rate [Brachial] 94 84 Respiratory Rate 18 18 Blood Pressure 125/63 Blood Pressure [Left Brachial artery] 128/81 Blood Pressure [Right Brachial artery] 128/86 O2 Saturation 98 98 O2 Source Room air Room air Sedation scale 1-Arouses easily 0-Fully awake Pain Intensity 0 Pain Intensity [Bilateral Lower extremity] 11/27/24 13:41 Temperature Temperature Source Pulse Rate Pulse Rate [Brachial] Respiratory Rate Blood Pressure Blood Pressure [Left Brachial artery] Blood Pressure [Right Brachial artery] O2 Saturation O2 Source Sedation scale Pain Intensity 6 Pain Intensity [Bilateral Lower extremity] Oxygen O2 Source Room air I&O (Last 24 Hrs): Intake and Output Totals x24h 11/25/24 11/26/24 11/27/24 23:59 23:59 23:59 Intake Total 50 / 50 1270 / 1270 Output Total 1200 / 1200 200 / 200 Balance 50 / 50 70 / 70 -200 / -200 Results Results: Laboratory Results WBC 7.6 x10^3/uL (4.8-10.8) 11/27/24 04:44 RBC 2.77 10^6/uL (4.70-6.10) L 11/27/24 04:44 Hgb 8.8 g/dL (14.0-18.0) L 11/27/24 04:44 Hct 28.4 % (42.0-52.0) L 11/27/24 04:44 MCV 102.5 fL (80.0-94.0) H 11/27/24 04:44 MCH 31.8 pg (27.0-31.0) H 11/27/24 04:44 MCHC 31.0 g/dL (32.0-36.0) L 11/27/24 04:44 RDW 14.9 % (12.0-15.0) 11/27/24 04:44 Plt Count 173 10^3/uL (130-450) 11/27/24 04:44 MPV 10.0 fL (7.4-11.4) 11/27/24 04:44 Neut # (Auto) 4.9 10^3/uL (1.5-6.6) 11/27/24 04:44 Lymph # (Auto) 1.5 10^3/uL (1.5-3.5) 11/27/24 04:44 [place] # (Auto) 1.0 10^3/uL (0.0-1.0) 11/27/24 04:44 Eos # (Auto) 0.1 10^3/uL (0.0-0.7) 11/27/24 04:44 Baso # (Auto) 0.0 10^3/uL (0.0-0.1) 11/27/24 04:44 Absolute Nucleated RBC 0.00 x10^3/uL 11/27/24 04:44 Nucleated RBC % 0.0 /100WBC 11/27/24 04:44 PT 14.4 secs (9.9-12.6) H 11/25/24 18:44 INR 1.3 (0.8-1.2) H 11/25/24 18:44 Sodium 134 mmol/L (135-145) L 11/27/24 04:44 Potassium 3.4 mmol/L (3.5-4.5) L 11/27/24 04:44 Chloride 104 mmol/L (101-111) 11/27/24 04:44 Carbon Dioxide 23 mmol/L (21-32) 11/27/24 04:44 Anion Gap 7.0 (6-13) 11/27/24 04:44 BUN 30 mg/dL (6-20) H 11/27/24 04:44 Creatinine 1.9 mg/dL (0.6-1.3) H 11/27/24 04:44 Estimated GFR (MDRD) 34 (>89) L 11/27/24 04:44 Glucose 107 mg/dL (74-104) H 11/27/24 04:44 Calcium 8.3 mg/dL (8.5-10.3) L 11/27/24 04:44 Total Bilirubin 0.7 mg/dL (0.2-1.0) 11/26/24 05:33 AST 11 IU/L (10-42) 11/26/24 05:33 ALT 9 IU/L (10-60) L 11/26/24 05:33 Alkaline Phosphatase 85 IU/L (42-121) 11/26/24 05:33 Total Protein 5.2 g/dL (6.4-8.9) L 11/26/24 05:33 Albumin 3.2 g/dL (3.2-5.5) 11/26/24 05:33 Globulin 2.0 g/dL (2.1-4.2) L 11/26/24 05:33 Albumin/Globulin Ratio 1.6 (1.0-2.2) 11/26/24 05:33 Acetaminophen 0.6 ug/mL 11/25/24 18:44 SARS-CoV-2 (PCR) NOT DETECTED 11/27/24 12:00 Blood Type O POSITIVE 11/25/24 18:44 Blood Type Recheck O POSITIVE 11/25/24 19:48 Antibody Screen NEGATIVE 11/25/24 18:44 Current Medications <Paige Cintron - Last Filed: 11/27/24 16:03> Current Medications Current Medications: Current Medications Generic Name Dose Route Start Last Admin Trade Name Freq PRN Reason Stop Dose Admin Acetaminophen 650 mg 11/26/24 15:44 11/27/24 13:41 Acetaminophen 325 Mg Tablet PO 650 mg Q4HR PRN Administration Pain or Fever > 38C (100.4F) Apixaban 5 mg 11/26/24 21:00 11/27/24 09:40 Apixaban 5 Mg Tablet PO 5 mg BID JOAN Administration Dorzolamide/Timolol 1 drops 11/26/24 09:00 11/27/24 09:41 Dorzolamide/Timolol Ophth Drops EACHEYE 1 drops BID JOAN Administration Furosemide 20 mg 11/26/24 09:00 11/27/24 09:40 Furosemide 20 Mg Tablet PO 20 mg DAILY JOAN Administration Hydromorphone HCl 0.5 mg 11/25/24 21:42 Hydromorphone 0.5 Mg/0.5 Ml Syringe IVP Q2H PRN Pain 8 to 10 Latanoprost 1 drops 11/26/24 09:00 11/27/24 09:41 Latanoprost 0.005% Ophth Drops EACHEYE 1 drops DAILY JOAN Administration Metoprolol Tartrate 25 mg 11/25/24 22:00 11/27/24 09:40 Metoprolol Tartrate 25 Mg Tablet PO 25 mg BID JOAN Administration Multivitamins/Minerals 1 tab 11/27/24 14:00 Multivitamin W/Minerals Tablet PO DAILYWM JOAN Ondansetron HCl 4 mg 11/25/24 21:42 Ondansetron Odt 4 Mg Tablet TL Q6HR PRN Nausea / Vomiting Sodium Chloride 10 ml 11/25/24 21:42 Sodium Chloride Flush 0.9% 10 Ml Syringe IVP PRN PRN NEEDED PER PROVIDER ORDERS Sodium Chloride 10 ml 11/26/24 01:00 11/27/24 09:41 Sodium Chloride Flush 0.9% 10 Ml Syringe IVP 10 ml 0100,0900,1700 JOAN Administration <HELGA Guardado - Last Filed: 11/27/24 16:42> Current Medications Current Medications: Current Medications Generic Name Dose Route Start Last Admin Trade Name Freq PRN Reason Stop Dose Admin Acetaminophen 650 mg 11/26/24 15:44 11/27/24 13:41 Acetaminophen 325 Mg Tablet PO 650 mg Q4HR PRN Administration Pain or Fever > 38C (100.4F) Apixaban 5 mg 11/26/24 21:00 11/27/24 09:40 Apixaban 5 Mg Tablet PO 5 mg BID JOAN Administration Dorzolamide/Timolol 1 drops 11/26/24 09:00 11/27/24 09:41 Dorzolamide/Timolol Ophth Drops EACHEYE 1 drops BID JOAN Administration Furosemide 20 mg 11/26/24 09:00 11/27/24 09:40 Furosemide 20 Mg Tablet PO 20 mg DAILY JOAN Administration Hydromorphone HCl 0.5 mg 11/25/24 21:42 Hydromorphone 0.5 Mg/0.5 Ml Syringe IVP Q2H PRN Pain 8 to 10 Latanoprost 1 drops 11/26/24 09:00 11/27/24 09:41 Latanoprost 0.005% Ophth Drops EACHEYE 1 drops DAILY JOAN Administration Metoprolol Tartrate 25 mg 11/25/24 22:00 11/27/24 09:40 Metoprolol Tartrate 25 Mg Tablet PO 25 mg BID JOAN Administration Multivitamins/Minerals 1 tab 11/27/24 14:00 Multivitamin W/Minerals Tablet PO DAILYWM [facility] Ondansetron HCl 4 mg 11/25/24 21:42 Ondansetron Odt 4 Mg Tablet TL Q6HR PRN Nausea / Vomiting Sodium Chloride 10 ml 11/25/24 21:42 Sodium Chloride Flush 0.9% 10 Ml Syringe IVP PRN PRN NEEDED PER PROVIDER ORDERS Sodium Chloride 10 ml 11/26/24 01:00 11/27/24 09:41 Sodium Chloride Flush 0.9% 10 Ml Syringe IVP 10 ml 0100,0900,1700 JOAN Administration
--- NOTE | 2024-11-27 14:15 | WOUND CARE PROGRESS NOTE ---
Conclusion and Plan Problem List (1) Weakness: (2) Altered mental status: (3) Arterial insufficiency of lower extremity: (4) Skin tear of left lower leg without complication: Qualifiers: Encounter type: subsequent encounter Qualified Code(s): S81.812D - Laceration without foreign body, left lower leg, subsequent encounter (5) Skin tear of right lower leg without complication: Qualifiers: Encounter type: subsequent encounter Qualified Code(s): S81.811D - Laceration without foreign body, right lower leg, subsequent encounter (6) Chronic kidney disease (CKD): (7) A-fib: (8) HTN (hypertension): Plan Plan: Request for WC QUALITY ASSURANCE LAB TECHNICIAN to assist hospitalist in determining best course of action for the pt was received. Provider and WC RN accompanied Dr. Black into the room and evaluated together. Photographs/measurements acquired. Photos underneath the Nursing tab. Measurements as follows: LLE medial calf- 15 x 5 x 0.6 cm. LLE lateral calf- 4.3 x 1.9 x 0.3 cm. RLE anterior/medial huggins- 8 x 4.7 x 0.4 cm with a more superficial satellite lesion to the medial aspect. Both openings connect but involve different layers of underlying tissue. LLE medial calf- this is the area that required the most aggressive debridement. Ulcer initially completely covered with non viable tissue which extended into the underlying tissues. Currently, surface composed of pink viable tissue that is non granular. Mod amt light colored serosang exudate present to the drsg. No odor detected. LLE lateral calf- much less depth present to this ulcer. Base is pink, again viable but non granular. Small to mod amt light colored serosang exudate, no odor present. RLE anteriomedial calf- This was an area of trauma which occurred approx 2 weeks ago when pt had a ground level fall in his home and sustained bumps and skin tears. Depth is minimal but edges of the periwound skin have darkened- estimate 0.5 to 2 cm along the edges; see wound photographs for visualization. Approximately 70% of the wound has a layer of yellow non viable tissue with the remainder composed of pink viable tissue. I am concerned about the advancement of the dark tissue; Dr. Black stated the darkened edges were a new development that has occurred since she first evaluated the pt. Had discussed utilizing wound vac therapy with the pt and his spouse at his last visit to the wound clinic; both were adamantly opposed to it. At this point, I feel like it is our best option to help the wound to the L medial calf fill in with healthy granulation tissue. Discussed with the pt and his spouse; pt dozing intermittently but the spouse was able to discuss it with me. She felt it would be a good idea to use the wound vac while the pt was in the [facility] facility and would receive the appropriate care. Discussed treatment options with Dr. Black; she will write the current orders/discharge orders. RNs Abdulaziz and Ann-Marie placed the drsgs on the pt's legs based on our discussion. LLE medial and LLE lateral- Medihoney, Aquacel Ag, large silicone bordered foam. Once wound vac authorization/shipment has occurred, can then use NPWT on the L medial ulcer. Could consider bridging to the L lateral ulcer depending on appearance and progress. R anteriomedial- Had hoped to use Santyl but unavailable. Will plan to use Silvasorb gel, an antimicrobial gel that will help maintain a moist environment and minimize bacterial colonization. Will use oil emulsion gauze, Telfa or ABD pad, secured with Kerlix/Jacob wrap without excessive tension d/t pt's poor arterial circulation. All drsgs to be changed daily for the first 3-4 days; at that time, can adjust the frequency of the drsg change based on amt of exudate and wound appearance. Have scheduled appt for the pt on December 05, 2024 at 1300 here in the clinic. Appreciate Dr. Black and Dr. King for their help in managing this complex situation. Time- 60 mins. Evaluation, discussion of treatment plan with pt/spouse, Dr. Black and charting. Results Lab Results: Laboratory Results Sodium 134 mmol/L (135-145) L 11/27/24 04:44 Potassium 3.4 mmol/L (3.5-4.5) L 11/27/24 04:44 Chloride 104 mmol/L (101-111) 11/27/24 04:44 Carbon Dioxide 23 mmol/L (21-32) 11/27/24 04:44 Anion Gap 7.0 (6-13) 11/27/24 04:44 BUN 30 mg/dL (6-20) H 11/27/24 04:44 Creatinine 1.9 mg/dL (0.6-1.3) H 11/27/24 04:44 Glucose 107 mg/dL (74-104) H 11/27/24 04:44 Calcium 8.3 mg/dL (8.5-10.3) L 11/27/24 04:44 Total Bilirubin 0.7 mg/dL (0.2-1.0) 11/26/24 05:33 AST 11 IU/L (10-42) 11/26/24 05:33 ALT 9 IU/L (10-60) L 11/26/24 05:33 Alkaline Phosphatase 85 IU/L (42-121) 11/26/24 05:33 Total Protein 5.2 g/dL (6.4-8.9) L 11/26/24 05:33 Albumin 3.2 g/dL (3.2-5.5) 11/26/24 05:33 Globulin 2.0 g/dL (2.1-4.2) L 11/26/24 05:33 Albumin/Globulin Ratio 1.6 (1.0-2.2) 11/26/24 05:33 Physician Wound Note Wound Note (Multiple) #1 LLE Med: Classification: Full thickness Pre Measurements Pre Wound Surface Area: 0 cm sq Wound Description Wound Base: Granular and Slough Exposed Structures: Fascia and Adipose Exudate Type: Sero-sanguineous Exudate Color: Yellow and Red Exudate Amount: Moderate Periwound Condition: Erythema and Weeping Wound Comment(s): ulcer to left medial lower leg; dressing, CDI, JACOB Wrap , see wound care photos Pain Pain Level: 7 #2 LLE Lat: Classification: Full thickness Pre Measurements Pre Wound Surface Area: 0 cm sq Wound Description Wound Base: Slough Exudate Amount: None Periwound Condition: Erythema Wound Comment(s): ulcer to left lateral left leg; dressing in place, kerlix, jacob wrap Pain Pain Level: 5 #3 RLE: Pre Measurements Pre Wound Surface Area: 0 cm sq Wound Description Wound Base: Granular, Slough, Red and [place] Exposed Structures: Fascia and Adipose Exudate Color: Red Exudate Amount: Moderate Periwound Condition: Weeping Wound Comment(s): ulcer to lateral lower led; dressing in place, xeroform, aquacek, ABD pad, kelix,JACOB wrap see wound photos Pain Pain Level: 4 #4 L medial knee: Pre Measurements Pre Wound Surface Area: 0 cm sq Wound Description Pain Pain Level: 3 #5 R elbow: Trauma: Abrasion Pre Measurements Pre Wound Surface Area: 0 cm sq Wound Description Exudate Amount: None Periwound Condition: Dry/scaly Wound Comment(s): scab, mepilex in place Pain Pain Level: 0
[2024-11-27] MEDS: MULTIVITAMIN W/MINERALS TABLET PO SCH (14:26)
[2024-11-28 05:55] LABS: BASOPHILS % (AUTO) 0.4 %; EOSINOPHILS # (AUTO) 0.1 10^3/uL (0.0-0.7); EOSINOPHILS % (AUTO) 0.9 %; HCT - HEMATOCRIT 28.9 % (42.0-52.0); HGB - HEMOGLOBIN 9.3 g/dL (14.0-18.0); LYMPHOCYTES # (AUTO) 1.3 10^3/uL (1.5-3.5); LYMPHOCYTES % (AUTO) 17.1 %; MEAN CORPUSCULAR HEMOGLOBIN 32.9 pg (27.0-31.0); MEAN CORPUSCULAR HGB CONC 32.2 g/dL (32.0-36.0); MEAN CORPUSCULAR VOLUME 102.1 fL (80.0-94.0); MEAN PLATELET VOLUME 9.8 fL (7.4-11.4); MONOCYTES # (AUTO) 0.9 10^3/uL (0.0-1.0); MONOCYTES % (AUTO) 12.3 %; NEUTROPHILS # (AUTO) 5.2 10^3/uL (1.5-6.6); PLT - PLATELET COUNT 194 10^3/uL (130-450); RED BLOOD COUNT 2.83 10^6/uL (4.70-6.10); RED CELL DISTRIBUTION WIDTH 15.1 % (12.0-15.0); WHITE BLOOD COUNT 7.5 x10^3/uL (4.8-10.8)
[2024-11-28 06:08] LABS: CALCIUM 8.2 mg/dL (8.5-10.3); CREATININE 1.9 mg/dL (0.6-1.3); POTASSIUM 3.5 mmol/L (3.5-4.5)
--- NOTE | 2024-11-28 10:18 | Discharge Summary ---
"Discharge Summary Admit Date: 11/25/24 Discharge Date: 11/28/24 Discharging Provider: Elli Black PA-C Primary Care Provider: Roland Rivas MD Code Status: Attempt Resuscitation DIAGNOSES Discharge Diagnoses with Status of Each Condition: Ambulatory dysfunction, being discharged to SNF for PT. Altered mental status, resolved Arterial insufficiency bilateral lower extremities, in need of intervention Bilateral lower extremity wounds, see wound care instructions on chart CKD, chronic at baseline Hypertension, chronic and controlled HPI History of Present Illness: 89-year-old male who presents to the emergency department for altered mental status. He had debridement of his bilateral lower extremity wounds on 11/24. 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 He has been seen in wound care for some number of weeks. In any event he was discharged to home about 36 hours ago and his is instructed to give him 1000 mg of Tylenol every 4 hours and oxycodone 5 mg every 4 hours whether he needed or not. Thusly she has been giving him either Tylenol or oxycodone every 2 hours. His last dose of oxycodone was about 7 hours ago. About 2 hours after his most recent dose of oxycodone she decided he needed to get up and go to the bathroom. He had trouble getting down the hallway and ended up sitting in a chair way in the hallway for about an hour while he decided what to do. She was unable to get him up and therefore they called the paramedics he was brought here for altered mental status. Since he has been in the emergency department it has been about 7 hours since his last dose of oxycodone. His mental status is clearing. His pain level is relatively well- controlled. His last dose of Tylenol was quite early this morning because his decided that maybe his pain was not that bad and he did not need it. His PCP was previously Dr. Epps who has retired. He has been in the process of getting established with Dr. Rivas's office but does not have a currently established relationship. He is seen weekly in the wound care center on Wednesdays and general surgery, Dr. King debrided his lower extremities yesterday. He states that he previously had a POLST that was DNR but he is thought about it recently and he would like to be full code. His Rosalia would be his surrogate decision maker. He has a daughter who lives in [place] and a son who lives in [place]. CONSULTS | PROCEDURES Consultations: Wound care HOSPITAL COURSE Hospital Course: This is an 89-year-old male who presented to the emergency department on postop day 1 after debridement of his bilateral lower extremity wounds with altered mental status. He had been taking 1000 mg of Tylenol every 4 hours and 5 mg of oxycodone every 4 hours. This is been going on for about 24 hours at the point that he was unable to walk and his called the paramedics. He has been struggling with lower extremity wounds for some time now and general surgery had been consulted as an outpatient and taken him for lower extremity wound debridement. He is currently in between primary care providers. He had been seeing Dr. Epps and was scheduled to see Dr. Rivas in the near future. He does need referral for vascular surgery which was complicating his care. He came into the hospital and his mental status quickly cleared with metabolism of the medications. Bedside consultation was undertaken with wound care and wound care plan was detailed as below. He was in stable condition was discharged to SNF on hospital day4 after 1 avoidable day to issues with insurance authorization. ALLERGIES Allergies Allergy/AdvReac Type Severity Reaction Status Date / Time diclofenac AdvReac Severe Hives Verified 11/25/24 18:29 MEDICATIONS Ambulatory Orders Medication Instructions Recorded Confirmed dabigatran etexilate 75 mg capsule 75 mg PO BID 08/20/24 11/26/24 (Pradaxa) dorzolamide 22.3 mg-timolol 6.8 1 drp ophthalmic (eye) BID 08/20/24 11/26/24 mg/mL eye drops furosemide 20 mg tablet 20 mg PO DAILY 08/20/24 11/26/24 latanoprost 0.005 % eye drops 1 drp ophthalmic (eye) DAILY 08/20/24 11/26/24 metoprolol tartrate 25 mg tablet 25 mg PO BID 08/20/24 11/26/24 calcium carbonate (Tums) 200 mg PO BID 09/07/24 11/26/24 vit C 250 mg-vit E 90 mg-zinc 40 1 tab PO BID 09/07/24 11/26/24 mg-copper 1 [id number] capsule (PreserVision AREDS-2) oxycodone 5 mg tablet 5 mg PO Q4H PRN Pain #30 tabs 02/21/25 02/23/25 lisinopril 5 mg tablet 5 mg PO DAILY 11/26/24 11/26/24 acetaminophen 325 mg tablet 650 mg (2 x 325 mg) PO Q4HR PRN 11/28/24 Pain Or Fever > 38c (100.4f) #60 tabs apixaban 5 mg tablet (Eliquis) 5 mg PO BID #60 tabs 11/28/24 arxqsjgkqhxg-[id number]-[id number] 1 tab PO DAILYWM #30 tabs 11/28/24 fumarate 19 mg-folic acid 400 mcg tablet (Therapeutic-M) PHYSICAL EXAM AT DISCHARGE Physical Exam Other/Comments: General: Oriented x3 and Cooperative HEENT: Atraumatic Neck: Supple Neuro: CN 2-12 Grossly Intact and Oriented Times 3 Cardiovascular: Other (irregularly irregular rate and rhythm, pedal pulses weak, but present with US doppler) Respiratory: Chest non-tender, No respiratory distress, Breath sounds nml and Other (Lungs CTA, no wheezes rhonchi or rales) Extremities: Other (minimal to no drainage, no active bleeding, granulation tissue present on bilateral lower extremity wounds. Refer to nursing pictures.). LABS 11/28/24 05:35 11/28/24 05:35 Other Lab Results: templates noninvasive vascular studies dated 10/18/2024 show artificially elevated ABIs greater than 1 probably due to vessel calcification. There are biphasic waveforms in the posterior tibial arteries bilaterally as well as the dorsalis pedis arteries bilaterally. Given these wounds patient probably needs further assessment. FOLLOW UP Follow Up: PCP as soon as [facility] dc vascular surgery for evaluation NISHA Discharge Plan Discharge Patient Disposition: [address] [facility] DC/Xfer Condition: Good Prescriptions: New acetaminophen 325 mg Tablet 650 mg PO Q4HR PRN (Reason: Pain Or Fever > 38c (100.4f)) Qty: 60 0RF Eliquis 5 mg Tablet 5 mg PO BID Qty: 60 0RF Therapeutic-M 19 mg iron- 400 mcg Tablet 1 tab PO DAILYWM Qty: 30 0RF Santyl 250 unit/gram ointment 1 applic topical DAILY Qty: 90 0RF Continued furosemide 20 mg tablet 20 mg PO DAILY metoprolol tartrate 25 mg tablet 25 mg PO BID Qty: 60 0RF dorzolamide-timolol 22.3-6.8 mg/mL drops 1 drp ophthalmic (eye) BID Qty: 10 0RF latanoprost 0.005 % drops 1 drp ophthalmic (eye) DAILY Qty: 2.5 0RF oxycodone 5 mg tablet 5 mg PO Q4H PRN (Reason: Pain) Qty: 14 0RF Rx Instructions: Take with food. Do Not drive while taking medication. lisinopril 5 mg tablet 5 mg PO DAILY Qty: 30 0RF PreserVision AREDS-2 250-90-40-1 mg capsule 1 tab PO BID Qty: 30 0RF Discontinued dabigatran etexilate [Pradaxa] 75 mg capsule 75 mg PO BID calcium carbonate [Tums] 200 mg calcium (500 mg) tablet,chewable 200 mg PO BID Health Concerns: You are an 89-year-old male who has been having problems with some wounds on your legs. The wounds are unlikely to heal without intervention by vascular surgery. You are going to need to see vascular surgeon in coming weeks. However, over the weekend, you got acutely weak and needed to come into the hospital because you were unable to walk and you were confused. Your confusion has gotten much better. Since you have been in the hospital we have worked at a wound care plan for you. We are sending you to [facility] to get stronger and healthier. We are hoping that you can get a wound VAC while you are they are which will help heal your wounds. Additionally you are going to need vascular surgery consultation. Care Plan Goals: Return to living at home with your and functioning somewhat independently Plan of Treatment: Wound care: Patient should have [facility] wound VAC to bilateral lower extremity wounds as soon as possible. Right lower extremity: Daily Santyl collagenase ointment to necrotic areas. Then apply damp gauze, overlaid with oil emulsion gauze (not Xeroform), ABD pad then securing dressing Left lower extremity: daily Medihoney overlaid with Aquacel Ag then silicone border dressing. Please see below for scheduled follow-up appointments with outpatient wound care and general surgery. Please see below for scheduled follow-up appointments with outpatient wound care and general surgery. Print Language: Setswana Stand Alone Forms: SNF Discharge Follow-up Care: [facility] [Provider Group] - 12/05/24 1:00 pm Kamille King DO [Provider Admit Priv/Credential] - 12/05/24 2:45 am"
[2024-11-28 12:29] VITALS: BP 126/78; TEMP 98.1; O2SAT 95
== END 2024-11-28 13:10 ==
LOC: ED 18:17 → MS2 18:17
PROVIDERS: ADMIT Physician Assistant Medical; ATTEND Physician Assistant Medical
DX: I48.20 Chronic atrial fibrillation, unspecified; L97.922 Non-pressure chronic ulcer of unspecified part of left lower leg with fat layer exposed; Z79.01 Long term (current) use of anticoagulants; I12.9 Hypertensive chronic kidney disease with stage 1 through stage 4 chronic kidney disease, or unspecified chronic kidney disease; S50.311D Abrasion of right elbow, subsequent encounter; I95.9 Hypotension, unspecified; I73.9 Peripheral vascular disease, unspecified; S81.812D Laceration without foreign body, left lower leg, subsequent encounter; E11.22 Type 2 diabetes mellitus with diabetic chronic kidney disease; E86.0 Dehydration; R41.82 Altered mental status, unspecified; T40.2X1A Poisoning by other opioids, accidental (unintentional), initial encounter; N18.9 Chronic kidney disease, unspecified; Y92.009 Unspecified place in unspecified non-institutional (private) residence as the place of occurrence of the external cause; R53.1 Weakness; N17.9 Acute kidney failure, unspecified; S81.811D Laceration without foreign body, right lower leg, subsequent encounter